=== PATIENT | female | born 1945 | race Caucasian/White ===

== ENCOUNTER 2020-05-13 09:26 | Inpatient (IN) | payer MEDICARE, BC ==
[2020-05-13] MEDS ORDERED: methylPREDNISolone Sodium Succinate 125 MG/2 ML SDV IVPUSH ONE (09:44)
[2020-05-13] MEDS ORDERED: Sodium Chloride 0.9% 2.5 ML Syringe FLUSH PRN ×2 (09:44→15:00)
[2020-05-13] MEDS ORDERED: Sodium Chloride 0.9% 10 ML Syringe FLUSH PRN (09:44)
--- NOTE | 2020-05-13 10:18 | EDM.PDOC ---
ED HPI GENERAL MEDICAL PROBLEM - General Chief Complaint: Respiratory Problem Stated Complaint: EMS ARRIVAL Time Seen by Provider: 05/13/20 09:43 Source of Information: Reports: Patient History Limitations: Reports: No Limitations - History of Present Illness INITIAL COMMENTS - FREE TEXT/NARRATIVE: 74-year-old female presents for shortness of breath and generalized weakness wor sening over the last 3 weeks. Patient has also noticed a nonproductive cough. She notes getting short of breath with short distance around her house. She denies any chest pain or tightness. She is uncertain of fevers. She has known Covid positive contacts. She has not been tested. She denies lower extremity swelling or pain. She does note generalized body aches - Related Data Allergies Allergy/AdvReac Type Severity Reaction Status Date / Time aspirin Allergy Rash Verified 06/16/15 10:33 Penicillins Allergy Nausea and Verified 05/13/20 09:28 Vomiting Home Meds: Home Meds Allopurinol [Zyloprim] 200 mg PO DAILY 05/13/20 [History] Dorzolamide HCl/Timolol Maleat [Dorzolamide-Timolol Eye Drops] 1 drop EYEBOTH DAILY 05/13/20 [History] Umeclidinium Brm/Vilanterol Tr [Anoro Ellipta 62.5-25 MCG] 1 inh IH DAILY 05/13/20 [History] busPIRone [Buspar] 15 mg PO TID 05/13/20 [History] hydrOXYzine HCL [Hydroxyzine HCl] 50 mg PO TID PRN 05/13/20 [History] Past Medical History HEENT History: Reports: Cataract, Impaired Vision Other HEENT History: wears glasses Cardiovascular History: Reports: None Respiratory History: Reports: COPD Gastrointestinal History: Reports: None Genitourinary History: Reports: None BRAND SPECIALIST History: Reports: None Musculoskeletal History: Reports: Gout Neurological History: Reports: None Psychiatric History: Reports: Anxiety, Depression Endocrine/Metabolic History: Reports: None Hematologic History: Reports: None Immunologic History: Reports: None Oncologic (Cancer) History: Reports: None Dermatologic History: Reports: None - Infectious Disease History Infectious Disease History: Reports: Chicken Pox, Measles, Rheumatic Fever - Past Surgical History Head Surgeries/Procedures: Reports: None HEENT Surgical History: Reports: Cataract Surgery Cardiovascular Surgical History: Reports: None Respiratory Surgical History: Reports: None GI Surgical History: Reports: None Female Surgical History: Reports: Tubal Ligation Endocrine Surgical History: Reports: None Neurological Surgical History: Reports: None Musculoskeletal Surgical History: Reports: None Oncologic Surgical History: Reports: None Dermatological Surgical History: Reports: None Social & Family History - Family History Family Medical History: No Pertinent Family History - Tobacco Use Tobacco Use Status *Q: Never Tobacco User - Caffeine Use Caffeine Use: Reports: None - Recreational Drug Use Recreational Drug Use: No ED ROS GENERAL - Review of Systems Review Of Systems: Comprehensive ROS is negative, except as noted in HPI. ED EXAM, GENERAL - Physical Exam Exam: See Below Exam Limited By: No Limitations General Appearance: Alert, WD/WN, No Apparent Distress Nose: Normal Inspection Throat/Mouth: Normal Voice, No Airway Compromise Head: Atraumatic, Normocephalic Neck: Normal Inspection Respiratory/Chest: No Respiratory Distress, Lungs Clear, Normal Breath Sounds, No Accessory Muscle Use, Other (Speaking full sentences without stopping, patient is on supplemental O2 to maintain pulse ox above 90%.) GI/Abdominal: Soft, Non-Tender Back Exam: Normal Inspection Extremities: Normal Inspection Neurological: Alert Psychiatric: Normal Affect, Normal Mood Skin Exam: Warm, Dry, Intact, Normal Color #1 Interpretation EKG Date: 05/13/20 Time: 09:38 Rhythm: NSR Rate (Beats/Min): 86 [place]: Normal P-Wave: Present QRS: Normal ST-T: Normal QT: Normal MD/PQ Interval: 155 Comparison: NA - No Prior EKG EKG Interpretation Comments: no ischemic changes Course - Vital Signs Last Recorded V/S: Last Vital Signs Temp 97.8 F 05/13/20 09:28 Pulse 70 05/13/20 12:03 Resp 17 05/13/20 12:03 BP 126/79 05/13/20 12:03 Pulse Ox 96 05/13/20 12:03 - Orders/Labs/Meds Orders: Active Orders 24 hr Category Date Time Status Cardiac Monitoring [RC] . DIRECTED Care 05/13/20 09:44 Active EKG Documentation Completion [RC] STAT Care 05/13/20 09:44 Active Pulse Oximetry [RC] ASDIRECTED Care 05/13/20 09:44 Active CULTURE BLOOD [BC] Stat Lab 05/13/20 12:09 Ordered CULTURE BLOOD [BC] Stat Lab 05/13/20 12:09 Ordered UA W/CHRIS RFLX IF INDICATED [URIN] Stat Lab 05/13/20 09:45 Ordered Cefepime [Maxipime in D5W 2 GM/50 ML] 2 gm Med 05/13/20 12:09 Active Premix Bag 1 bag IV ONETIME Sodium Chloride 0.9% [Saline Flush] Med 05/13/20 09:44 Active 10 ml FLUSH ASDIRECTED PRN Sodium Chloride 0.9% [Saline Flush] Med 05/13/20 09:44 Active 2.5 ml FLUSH ASDIRECTED PRN Blood Culture x2 Reflex Set [OM.PC] Stat Oth 05/13/20 12:09 Ordered Saline Lock Insert [OM.PC] Stat Oth 05/13/20 09:44 Ordered Medication Orders Cefepime HCl 2 gm/ Premix 50 mls @ 100 mls/hr IV ONETIME ONE Stop: 05/13/20 12:38 Sodium Chloride (Saline Flush) 10 ml FLUSH ASDIRECTED PRN PRN Reason: Keep Vein Open Last Admin: 05/13/20 09:50 Dose: 10 ml Documented by: [id number] Sodium Chloride (Saline Flush) 2.5 ml FLUSH ASDIRECTED PRN PRN Reason: Keep Vein Open Last Admin: 05/13/20 09:50 Dose: 2.5 ml Documented by: [id number] Labs: Laboratory Tests 05/13/20 05/13/20 05/13/20 Range/Units 09:52 09:52 09:52 WBC 6.69 (4.0-11.0) K/uL RBC 4.60 (4.30-5.90) M/uL Hgb 13.7 (12.0-16.0) g/dL Hct 42.0 (36.0-46.0) % MCV 91.3 (80.0-98.0) fL MCH 29.8 (27.0-32.0) pg MCHC 32.6 (31.0-37.0) g/dL RDW Std Deviation 46.7 (28.0-62.0) fl RDW Coeff of Oscar 14 (11.0-15.0) % Plt Count 243 (150-400) K/uL MPV 9.90 (7.40-12.00) fL Neut % (Auto) 74.2 (48.0-80.0) % Lymph % (Auto) 14.6 L (16.0-40.0) % [place] % (Auto) 8.8 (0.0-15.0) % Eos % (Auto) 2.1 (0.0-7.0) % Baso % (Auto) 0.3 (0.0-1.5) % Neut # (Auto) 5.0 (1.4-5.7) K/uL Lymph # (Auto) 1.0 (0.6-2.4) K/uL [place] # (Auto) 0.6 (0.0-0.8) K/uL Eos # (Auto) 0.1 (0.0-0.7) K/uL Baso # (Auto) 0.0 (0.0-0.1) K/uL Nucleated RBC % 0.0 /100WBC Nucleated RBCs # 0 K/uL INR 1.06 APTT 26.3 (18.6-31.3) SEC D-Dimer, Quantitative 20.52 H (0.0-0.50) mg/L FEU ABG pH (7.35-7.45) ABG pCO2 (35-45) mmHG ABG pO2 (75-100) mmHG ABG HCO3 (22-26) mEq/L ABG Total CO2 ABG Base Excess (-2.0-2.0) Lactate 2.0 (0.20-2.00) mmol/L Sodium (136-145) mmol/L Potassium (3.5-5.1) mmol/L Chloride (98-107) mmol/L Carbon Dioxide (21.0-32.0) mmol/L BUN (7.0-18.0) mg/dL Creatinine (0.6-1.0) mg/dL Est Cr Clr Drug Dosing mL/min Estimated GFR (MDRD) ml/min Glucose (74-106) mg/dL Calcium (8.5-10.1) mg/dL Magnesium (1.8-2.4) mg/dL Total Bilirubin (0.2-1.0) mg/dL AST (15-37) IU/L ALT (14-63) IU/L Alkaline Phosphatase (46-116) U/L Troponin I (0.000-0.056) ng/mL B-Natriuretic Peptide (<100) PG/ML Total Protein (6.4-8.2) g/dL Albumin (3.4-5.0) g/dL Globulin (2.6-4.0) g/dL Albumin/Globulin Ratio (0.9-1.6) Influenza Type A RNA (NEGATIVE) Influenza Type B RNA (NEGATIVE) SARS-CoV-2 RNA (DANELLE) (NEGATIVE) 05/13/20 05/13/20 05/13/20 Range/Units 09:52 09:52 10:00 WBC (4.0-11.0) K/uL RBC (4.30-5.90) M/uL Hgb (12.0-16.0) g/dL Hct (36.0-46.0) % MCV (80.0-98.0) fL MCH (27.0-32.0) pg MCHC (31.0-37.0) g/dL RDW Std Deviation (28.0-62.0) fl RDW Coeff of Oscar (11.0-15.0) % Plt Count (150-400) K/uL MPV (7.40-12.00) fL Neut % (Auto) (48.0-80.0) % Lymph % (Auto) (16.0-40.0) % [place] % (Auto) (0.0-15.0) % Eos % (Auto) (0.0-7.0) % Baso % (Auto) (0.0-1.5) % Neut # (Auto) (1.4-5.7) K/uL Lymph # (Auto) (0.6-2.4) K/uL [place] # (Auto) (0.0-0.8) K/uL Eos # (Auto) (0.0-0.7) K/uL Baso # (Auto) (0.0-0.1) K/uL Nucleated RBC % /100WBC Nucleated RBCs # K/uL INR APTT (18.6-31.3) SEC D-Dimer, Quantitative (0.0-0.50) mg/L FEU ABG pH 7.522 H (7.35-7.45) ABG pCO2 31 L (35-45) mmHG ABG pO2 65 L (75-100) mmHG ABG HCO3 25 (22-26) mEq/L ABG Total CO2 22.0 ABG Base Excess 3.0 H (-2.0-2.0) Lactate (0.20-2.00) mmol/L Sodium 144 (136-145) mmol/L Potassium 3.6 (3.5-5.1) mmol/L Chloride 107 (98-107) mmol/L Carbon Dioxide 25.7 (21.0-32.0) mmol/L BUN 15 (7.0-18.0) mg/dL Creatinine 1.2 H (0.6-1.0) mg/dL Est Cr Clr Drug Dosing 35.52 mL/min Estimated GFR (MDRD) 43.9 ml/min Glucose 117 H (74-106) mg/dL Calcium 9.4 (8.5-10.1) mg/dL Magnesium 2.2 (1.8-2.4) mg/dL Total Bilirubin 0.4 (0.2-1.0) mg/dL AST 33 (15-37) IU/L ALT 24 (14-63) IU/L Alkaline Phosphatase 93 (46-116) U/L Troponin I < 0.050 (0.000-0.056) ng/mL B-Natriuretic Peptide 44 (<100) PG/ML Total Protein 7.0 (6.4-8.2) g/dL Albumin 2.7 L (3.4-5.0) g/dL Globulin 4.3 H (2.6-4.0) g/dL Albumin/Globulin Ratio 0.6 L (0.9-1.6) Influenza Type A RNA (NEGATIVE) Influenza Type B RNA (NEGATIVE) SARS-CoV-2 RNA (DANELLE) (NEGATIVE) 05/13/20 Range/Units 10:15 WBC (4.0-11.0) K/uL RBC (4.30-5.90) M/uL Hgb (12.0-16.0) g/dL Hct (36.0-46.0) % MCV (80.0-98.0) fL MCH (27.0-32.0) pg MCHC (31.0-37.0) g/dL RDW Std Deviation (28.0-62.0) fl RDW Coeff of [place] (11.0-15.0) % Plt Count (150-400) K/uL MPV (7.40-12.00) fL Neut % (Auto) (48.0-80.0) % Lymph % (Auto) (16.0-40.0) % [place] % (Auto) (0.0-15.0) % Eos % (Auto) (0.0-7.0) % Baso % (Auto) (0.0-1.5) % Neut # (Auto) (1.4-5.7) K/uL Lymph # (Auto) (0.6-2.4) K/uL [place] # (Auto) (0.0-0.8) K/uL Eos # (Auto) (0.0-0.7) K/uL Baso # (Auto) (0.0-0.1) K/uL Nucleated RBC % /100WBC Nucleated RBCs # K/uL INR APTT (18.6-31.3) SEC D-Dimer, Quantitative (0.0-0.50) mg/L FEU ABG pH (7.35-7.45) ABG pCO2 (35-45) mmHG ABG pO2 (75-100) mmHG ABG HCO3 (22-26) mEq/L ABG Total CO2 ABG Base Excess (-2.0-2.0) Lactate (0.20-2.00) mmol/L Sodium (136-145) mmol/L Potassium (3.5-5.1) mmol/L Chloride (98-107) mmol/L Carbon Dioxide (21.0-32.0) mmol/L BUN (7.0-18.0) mg/dL Creatinine (0.6-1.0) mg/dL Est Cr Clr Drug Dosing mL/min Estimated GFR (MDRD) ml/min Glucose (74-106) mg/dL Calcium (8.5-10.1) mg/dL Magnesium (1.8-2.4) mg/dL Total Bilirubin (0.2-1.0) mg/dL AST (15-37) IU/L ALT (14-63) IU/L Alkaline Phosphatase (46-116) U/L Troponin I (0.000-0.056) ng/mL B-Natriuretic Peptide (<100) PG/ML Total Protein (6.4-8.2) g/dL Albumin (3.4-5.0) g/dL Globulin (2.6-4.0) g/dL Albumin/Globulin Ratio (0.9-1.6) Influenza Type A RNA NEGATIVE (NEGATIVE) Influenza Type B RNA NEGATIVE (NEGATIVE) SARS-CoV-2 RNA (DANELLE) POSITIVE H (NEGATIVE) Meds: Medications Generic Name Dose Route Start Last Admin Trade Name Freq PRN Reason Stop Dose Admin Cefepime HCl 2 gm/ Premix 50 mls @ 100 mls/hr 05/13/20 12:09 IV 05/13/20 12:38 ONETIME ONE Sodium Chloride 10 ml 05/13/20 09:44 05/13/20 09:50 Saline Flush FLUSH 10 ml ASDIRECTED PRN Administration Keep Vein Open Sodium Chloride 2.5 ml 05/13/20 09:44 05/13/20 09:50 Saline Flush FLUSH 2.5 ml ASDIRECTED PRN Administration Keep Vein Open Discontinued Medications Generic Name Dose Route Start Last Admin Trade Name Freq PRN Reason Stop Dose Admin Iopamidol 80 ml 05/13/20 11:44 05/13/20 11:44 Isovue Multipack-370 (76%) IVPUSH 05/13/20 11:45 80 ml ONETIME STA Administration Methylprednisolone Sodium Succinate 125 mg 05/13/20 09:44 05/13/20 09:50 Solu-Medrol IVPUSH 05/13/20 09:45 125 mg ONETIME ONE Administration - Re-Assessments/Exams Free Text/Narrative Re-Assessment/Exam: 05/13/20 11:04 D-dimer markedly elevated. Will get CTA to rule out pulmonary embolism and for better evaluation of the lungs. Chest x-ray shows bilateral patchy infiltrates consistent with COPD versus Covid. 05/13/20 12:19 Will admit for COVID and superimposed bacterial pneumonia Departure - Departure Time of Disposition: 12:19 Disposition: Admitted As Inpatient 66 Clinical Impression: COVID-19 Pneumonia Qualifiers: Pneumonia type: due to unspecified organism Laterality: unspecified laterality Lung location: unspecified part of lung Qualified Code(s): J18.9 - Pneumonia, unspecified organism - Discharge Information Referrals: PCP,None [Primary Care Provider] - Forms: ED Department Discharge Sepsis Event Note (ED) - Evaluation Sepsis Screening Result: No Definite Risk - Focused Exam Vital Signs: Vital Signs Temp Pulse Resp BP Pulse Ox 05/13/20 12:03 70 17 126/79 96 05/13/20 11:09 81 18 106/64 95 05/13/20 10:31 83 18 102/75 95 05/13/20 10:07 84 18 112/73 94 L 05/13/20 09:28 97.8 F 84 18 119/75 92 L - My Orders Last 24 Hours: My Active Orders 05/13/20 09:44 Cardiac Monitoring [RC] . DIRECTED EKG Documentation Completion [RC] STAT Pulse Oximetry [RC] ASDIRECTED Sodium Chloride 0.9% [Saline Flush] 10 ml FLUSH ASDIRECTED PRN Sodium Chloride 0.9% [Saline Flush] 2.5 ml FLUSH ASDIRECTED PRN Saline Lock Insert [OM.PC] Stat 05/13/20 09:45 UA W/CHRIS RFLX IF INDICATED [URIN] Stat 05/13/20 12:09 CULTURE BLOOD [BC] Stat CULTURE BLOOD [BC] Stat Cefepime [Maxipime in D5W 2 GM/50 ML] 2 gm Premix Bag 1 bag IV ONETIME Blood Culture x2 Reflex Set [OM.PC] Stat - Assessment/Plan Last 24 Hours: My Active Orders 05/13/20 09:44 Cardiac Monitoring [RC] . DIRECTED EKG Documentation Completion [RC] STAT Pulse Oximetry [RC] ASDIRECTED Sodium Chloride 0.9% [Saline Flush] 10 ml FLUSH ASDIRECTED PRN Sodium Chloride 0.9% [Saline Flush] 2.5 ml FLUSH ASDIRECTED PRN Saline Lock Insert [OM.PC] Stat 05/13/20 09:45 UA W/CHRIS RFLX IF INDICATED [URIN] Stat 05/13/20 12:09 CULTURE BLOOD [BC] Stat CULTURE BLOOD [BC] Stat Cefepime [Maxipime in D5W 2 GM/50 ML] 2 gm Premix Bag 1 bag IV ONETIME Blood Culture x2 Reflex Set [OM.PC] Stat
--- NOTE | 2020-05-13 10:28 | CR ---
INDICATION: Dyspnea. Clinically suspected COVID. COMPARISON: None TECHNIQUE: Single-view portable chest radiograph FINDINGS: TUBES AND LINES: None. HEART AND MEDIASTINUM: The heart size is normal. The mediastinal contour appears normal for patient age. LUNGS AND PLEURAL SPACES: Upper lobes appear hyperlucent raising the possibility of a background pattern of COPD. Patchy opacities of both lung bases, left greater than right, probably inflammatory.No pleural effusion or pneumothorax OSSEOUS STRUCTURES: Age-appropriate appearance. No acute focal finding. IMPRESSION: Probable background pattern of COPD. Patchy opacities of both lung bases, left greater than right, probably inflammatory. Dictated by Jason Livingston MD @ May 13 2020 10:25AM Signed by Dr. Jason Livingston @ May 13 2020 10:27AM
[2020-05-13 10:33] LABS: BLOOD UREA NITROGEN,BUN 15 mg/dL (7.0-18.0); CARBON DIOXIDE,CO2 25.7 mmol/L (21.0-32.0); CHLORIDE,CL 107 mmol/L (98-107); GLUCOSE RANDOM 117 mg/dL (74-106); POTASSIUM,K 3.6 mmol/L (3.5-5.1); SODIUM,NA 144 mmol/L (136-145)
[2020-05-13 11:10] LABS: CORONAVIRUS COVID-19 NAA POSITIVE (NEGATIVE); INFLUENZA A NAA NEGATIVE (NEGATIVE); INFLUENZA B NAA NEGATIVE (NEGATIVE)
[2020-05-13] MEDS ORDERED: Iopamidol 755 MG/ML 500 ML Multipack Bottle IVPUSH STA (11:44)
--- NOTE | 2020-05-13 12:01 | CT ---
INDICATION: Dyspnea. Elevated D-dimer. COVID positive. COMPARISON: A chest radiograph from the same day TECHNIQUE: : CT examination of the chest was performed with the uneventful intravenous administration of 80 cc of Isovue 3 7 while thin axial sections were obtained from above the apices of the lungs to the lung bases. Please note that all CT scans at this facility use dose modulation, iterative reconstruction, and/or weight-based dosing when appropriate to reduce radiation dose to as low as reasonably achievable. FINDINGS: : HEART and MEDIASTINUM: Heart is mildly enlarged. Atherosclerotic vascular valvular calcifications. Prominent mediastinal lymph nodes likely reactive to the process discussed below. The valvular calcifications are aortic valvular. PULMONARY ARTERIAL CIRCULATION: No evidence of pulmonary embolus LUNGS: The lungs are present with multiple abnormalities. There is a background of significant upper lobe predominant centrilobular emphysema. There is also a background cystic lung disease at the bases especially posteriorly and in the lingula and right middle lobe. This is likely due to interstitial fibrosis and therefore this is a mixed emphysema and fibrosis pattern. In areas, the fibrosis consists of honeycombing which is considered severe fibrosis There is abnormal fluid and soft tissue in a cavity at the right base measuring about 4 centimeters in greatest length. This is probably due to superinfection of the cavity. This is usually bacterial or fungal in nature. There is abnormal increased density identified posteriorly at the bases in the areas of fibrosis. This is probably due to a superimposed infectious process within the fibrosis. This can be seen in bacterial disease. COVID pneumonia specifically affecting areas of pre-existing fibrosis has not yet been described. PLEURAL SPACES: There is no pleural effusion, pneumothorax or pleural based mass. VISUALIZED UPPER ABDOMEN: The limited visualized upper abdominal structures appear normal. OSSEOUS STRUCTURES: Age-appropriate appearance. No acute fracture or destructive process. TUBES and LINES: None. IMPRESSION: 1. Mildly enlarged heart. Mediastinal lymphadenopathy likely reactive. 2. No evidence of pulmonary embolus. 3. There is significant chronic lung disease. The chronic lung disease is a mixed emphysema and fibrosis pattern with areas of honeycombing. 4. There is a cavity in the right lower lobe containing abnormal fluid and soft tissue. This is not a necrotizing pneumonia but rather superinfection of a pre-existing cavity. This is usually due to bacterial or noninvasive fungal disease. 5. Bilateral lower lobe airspace disease could represent a separate inflammatory process such as pneumonia including the possibility of COVID pneumonia Please note that all CT scans at this facility use dose modulation, iterative reconstruction, and/or weight-based dosing when appropriate to reduce radiation dose to as low as reasonably achievable. Dictated by Jason Livingston MD @ May 13 2020 11:47AM Signed by Dr. Jason Livingston @ May 13 2020 11:59AM
[2020-05-13] MEDS ORDERED: Cefepime 2 GM in Premix Bag 1 BAG IV ONE (12:09)
[2020-05-13] MEDS ORDERED: REMDESIVIR 200 MG in Sodium Chloride 0.9% 250 ML IV ONE (13:36)
--- NOTE | 2020-05-13 13:43 | PCM.HP.2 ---
H&P History of Present Illness - General Date of Service: 05/13/20 Admit Problem/Dx: Admission Diagnosis/Problem Admission Diagnosis/Problem Pneumonia Source of Information: Patient History Limitations: Reports: No Limitations - History of Present Illness Initial Comments - Free Text/Narative: This 74-year-old female with past medical history of COPD, recurrent pneumonia presented to the ER with not feeling well for at least 2 weeks. She reports that she is progressively worsened. It initially started when she was seen by an oral surgeon in [facility] for abscessed tooth and she was placed on amoxicillin. She reports after taking the amoxicillin she felt she became generally tired and fatigued and did not feel well. She reports intermittent nausea no vomiting and shortness of breath. She denies any sinus congestion neck pain sore throat no loss of smell or taste and no chest pain. She reports that she has become very short of breath with any movement within her home even a very short distance. She reports she has an intermittent cough that has been cold sputum in color and had one episode of hemoptysis yesterday. She denies any abdominal pain dysuria or constipation or diarrhea. She reports she has had known contacts that are positive with Covid. She denies any tobacco use she is a former user. No recreational drug use and no alcohol use. In the ER no leukocytosis noted platelets and hemoglobin stable D-dimer severely elevated at 20. Troponin negative Covid swab positive influenza negative. Chest x-ray revealed bilateral patchy infiltrates. Due to the elevated D-dimer CTA of the chest was obtained which reveals mildly enlarged heart with m ediastinal lymphadenopathy which is likely reactive there is no evidence of pulmonary embolus. There is significant chronic lung disease which is a mix of emphysema and fibrosis with areas of honeycombing. There is a cavity in the right lower lobe containing abnormal fluid of soft tissue this is not necrotizing pneumonia but rather a superinfection of a pre-existing cavity. Bilateral lower lobe airspace disease could represent a separate inflammatory process such as pneumonia including the possibility of Covid pneumonia. She was treated with cefepime in the ER blood cultures and urine sample obtained. Lactic acid normal at 2. She was noted to be 84% on room air upon arrival, she was placed on 4 L of oxygen due to hypoxia. She will be admitted inpatient for acute hypoxic respiratory failure, COVID-19 pneumonia, viral pneumonia, community-acquired pneumonia. - Related Data Allergies/Adverse Reactions: Allergies Allergy/AdvReac Type Severity Reaction Status Date / Time aspirin Allergy Rash Verified 06/16/15 10:33 Penicillins Allergy Nausea and Verified 05/13/20 09:28 Vomiting Home Medications: Home Meds Allopurinol [Zyloprim] 200 mg PO DAILY 05/13/20 [History] Dorzolamide HCl/Timolol Maleat [Dorzolamide-Timolol Eye Drops] 1 drop EYEBOTH DAILY 05/13/20 [History] Umeclidinium Brm/Vilanterol Tr [Anoro Ellipta 62.5-25 MCG] 1 inh IH DAILY 05/13/20 [History] busPIRone [Buspar] 15 mg PO TID 05/13/20 [History] hydrOXYzine HCL [Hydroxyzine HCl] 50 mg PO TID PRN 05/13/20 [History] Past Medical History HEENT History: Reports: Cataract, Impaired Vision Other HEENT History: wears glasses Cardiovascular History: Reports: None Respiratory History: Reports: COPD Gastrointestinal History: Reports: None Genitourinary History: Reports: None [employer] History: Reports: None Musculoskeletal History: Reports: Gout Neurological History: Reports: None Psychiatric History: Reports: Anxiety, Depression Endocrine/Metabolic History: Reports: None Hematologic History: Reports: None Immunologic History: Reports: None Oncologic (Cancer) History: Reports: None Dermatologic History: Reports: None - Infectious Disease History Infectious Disease History: Reports: Chicken Pox, Measles, Rheumatic Fever - Past Surgical History Head Surgeries/Procedures: Reports: None HEENT Surgical History: Reports: Cataract Surgery Cardiovascular Surgical History: Reports: None Respiratory Surgical History: Reports: None GI Surgical History: Reports: None Female Surgical History: Reports: Tubal Ligation Endocrine Surgical History: Reports: None Neurological Surgical History: Reports: None Musculoskeletal Surgical History: Reports: None Oncologic Surgical History: Reports: None Dermatological Surgical History: Reports: None Social & Family History - Family History Family Medical History: No Pertinent Family History - Tobacco Use Tobacco Use Status *Q: Never Tobacco User - Caffeine Use Caffeine Use: Reports: None - Recreational Drug Use Recreational Drug Use: No H&P Review of Systems - Review of Systems: Review Of Systems: See Below General: Reports: Chills, Malaise, Weakness, Fatigue HEENT: Reports: No Symptoms, Headaches. Denies: Sinus Congestion, Sore Throat, Visual Changes Pulmonary: Reports: Shortness of Breath, Pleuritic Chest Pain, Cough, Sputum, Hemoptysis Cardiovascular: Reports: Dyspnea on Exertion. Denies: Chest Pain Gastrointestinal: Reports: Nausea. Denies: Abdominal Pain, Black Stool, Bloody Stool, Constipation, Vomiting Genitourinary: Reports: No Symptoms. Denies: Dysuria, Frequency, Burning Musculoskeletal: Reports: No Symptoms Skin: Reports: No Symptoms Psychiatric: Reports: No Symptoms Neurological: Reports: No Symptoms Hematologic/Lymphatic: Reports: No Symptoms Immunologic: Reports: No Symptoms Exam - Exam Exam: See Below - Vital Signs Vital Signs: Last Vital Signs Temp 97.8 F 05/13/20 09:28 Pulse 79 05/13/20 13:01 Resp 18 05/13/20 13:01 BP 135/87 05/13/20 13:01 Pulse Ox 94 L 05/13/20 13:01 Weight: 77.111 kg - Exam General: Alert, Oriented, Cooperative, Other (Appears acutely ill.) HEENT: Conjunctiva Clear, Mucosa Moist & Groom, Posterior Pharynx Clear Neck: Supple, Trachea Midline Lungs: Decreased Breath Sounds (Basilar), Crackles (Fine crackles to the right). No: Normal Respiratory Effort (Dyspnea), Wheezing Cardiovascular: Regular Rate, Regular Rhythm, Normal S1, Normal S2 GI/Abdominal Exam: Normal Bowel Sounds, Soft, Non-Tender Back Exam: Normal Inspection, Full Range of Motion Extremities: Normal Inspection, Normal Range of Motion, Non-Tender, No Pedal Edema Neurological: Cranial Nerves Intact Neuro Extensive - Mental Status: Alert, Oriented x3 Neuro Extensive - Motor, Sensory, Reflexes: CN II-XII Intact Psychiatric: Alert, Normal Affect, Normal Mood - Patient Data Lab Results Last 24 hrs: Laboratory Results - last 24 hr 05/13/20 05/13/20 05/13/20 Range/Units 09:52 09:52 09:52 WBC 6.69 (4.0-11.0) K/uL RBC 4.60 (4.30-5.90) M/uL Hgb 13.7 (12.0-16.0) g/dL Hct 42.0 (36.0-46.0) % MCV 91.3 (80.0-98.0) fL MCH 29.8 (27.0-32.0) pg MCHC 32.6 (31.0-37.0) g/dL RDW Std Deviation 46.7 (28.0-62.0) fl RDW Coeff of Oscar 14 (11.0-15.0) % Plt Count 243 (150-400) K/uL MPV 9.90 (7.40-12.00) fL Neut % (Auto) 74.2 (48.0-80.0) % Lymph % (Auto) 14.6 L (16.0-40.0) % Antelope % (Auto) 8.8 (0.0-15.0) % Eos % (Auto) 2.1 (0.0-7.0) % Baso % (Auto) 0.3 (0.0-1.5) % Neut # (Auto) 5.0 (1.4-5.7) K/uL Lymph # (Auto) 1.0 (0.6-2.4) K/uL Antelope # (Auto) 0.6 (0.0-0.8) K/uL Eos # (Auto) 0.1 (0.0-0.7) K/uL Baso # (Auto) 0.0 (0.0-0.1) K/uL Nucleated RBC % 0.0 /100WBC Nucleated RBCs # 0 K/uL INR 1.06 APTT 26.3 (18.6-31.3) SEC D-Dimer, Quantitative 20.52 H (0.0-0.50) mg/L FEU ABG pH (7.35-7.45) ABG pCO2 (35-45) mmHG ABG pO2 (75-100) mmHG ABG HCO3 (22-26) mEq/L ABG Total CO2 ABG Base Excess (-2.0-2.0) Lactate 2.0 (0.20-2.00) mmol/L Sodium (136-145) mmol/L Potassium (3.5-5.1) mmol/L Chloride (98-107) mmol/L Carbon Dioxide (21.0-32.0) mmol/L BUN (7.0-18.0) mg/dL Creatinine (0.6-1.0) mg/dL Est Cr Clr Drug Dosing mL/min Estimated GFR (MDRD) ml/min Glucose (74-106) mg/dL Calcium (8.5-10.1) mg/dL Magnesium (1.8-2.4) mg/dL Total Bilirubin (0.2-1.0) mg/dL AST (15-37) IU/L ALT (14-63) IU/L Alkaline Phosphatase (46-116) U/L Troponin I (0.000-0.056) ng/mL B-Natriuretic Peptide (<100) PG/ML Total Protein (6.4-8.2) g/dL Albumin (3.4-5.0) g/dL Globulin (2.6-4.0) g/dL Albumin/Globulin Ratio (0.9-1.6) Influenza Type A RNA (NEGATIVE) Influenza Type B RNA (NEGATIVE) SARS-CoV-2 RNA (DANELLE) (NEGATIVE) 05/13/20 05/13/20 05/13/20 Range/Units 09:52 09:52 10:00 WBC (4.0-11.0) K/uL RBC (4.30-5.90) M/uL Hgb (12.0-16.0) g/dL Hct (36.0-46.0) % MCV (80.0-98.0) fL MCH (27.0-32.0) pg MCHC (31.0-37.0) g/dL RDW Std Deviation (28.0-62.0) fl RDW Coeff of Oscar (11.0-15.0) % Plt Count (150-400) K/uL MPV (7.40-12.00) fL Neut % (Auto) (48.0-80.0) % Lymph % (Auto) (16.0-40.0) % Antelope % (Auto) (0.0-15.0) % Eos % (Auto) (0.0-7.0) % Baso % (Auto) (0.0-1.5) % Neut # (Auto) (1.4-5.7) K/uL Lymph # (Auto) (0.6-2.4) K/uL Antelope # (Auto) (0.0-0.8) K/uL Eos # (Auto) (0.0-0.7) K/uL Baso # (Auto) (0.0-0.1) K/uL Nucleated RBC % /100WBC Nucleated RBCs # K/uL INR APTT (18.6-31.3) SEC D-Dimer, Quantitative (0.0-0.50) mg/L FEU ABG pH 7.522 H (7.35-7.45) ABG pCO2 31 L (35-45) mmHG ABG pO2 65 L (75-100) mmHG ABG HCO3 25 (22-26) mEq/L ABG Total CO2 22.0 ABG Base Excess 3.0 H (-2.0-2.0) Lactate (0.20-2.00) mmol/L Sodium 144 (136-145) mmol/L Potassium 3.6 (3.5-5.1) mmol/L Chloride 107 (98-107) mmol/L Carbon Dioxide 25.7 (21.0-32.0) mmol/L BUN 15 (7.0-18.0) mg/dL Creatinine 1.2 H (0.6-1.0) mg/dL Est Cr Clr Drug Dosing 35.52 mL/min Estimated GFR (MDRD) 43.9 ml/min Glucose 117 H (74-106) mg/dL Calcium 9.4 (8.5-10.1) mg/dL Magnesium 2.2 (1.8-2.4) mg/dL Total Bilirubin 0.4 (0.2-1.0) mg/dL AST 33 (15-37) IU/L ALT 24 (14-63) IU/L Alkaline Phosphatase 93 (46-116) U/L Troponin I < 0.050 (0.000-0.056) ng/mL B-Natriuretic Peptide 44 (<100) PG/ML Total Protein 7.0 (6.4-8.2) g/dL Albumin 2.7 L (3.4-5.0) g/dL Globulin 4.3 H (2.6-4.0) g/dL Albumin/Globulin Ratio 0.6 L (0.9-1.6) Influenza Type A RNA (NEGATIVE) Influenza Type B RNA (NEGATIVE) SARS-CoV-2 RNA (DANELLE) (NEGATIVE) 05/13/20 Range/Units 10:15 WBC (4.0-11.0) K/uL RBC (4.30-5.90) M/uL Hgb (12.0-16.0) g/dL Hct (36.0-46.0) % MCV (80.0-98.0) fL MCH (27.0-32.0) pg MCHC (31.0-37.0) g/dL RDW Std Deviation (28.0-62.0) fl RDW Coeff of Oscar (11.0-15.0) % Plt Count (150-400) K/uL MPV (7.40-12.00) fL Neut % (Auto) (48.0-80.0) % Lymph % (Auto) (16.0-40.0) % Antelope % (Auto) (0.0-15.0) % Eos % (Auto) (0.0-7.0) % Baso % (Auto) (0.0-1.5) % Neut # (Auto) (1.4-5.7) K/uL Lymph # (Auto) (0.6-2.4) K/uL Antelope # (Auto) (0.0-0.8) K/uL Eos # (Auto) (0.0-0.7) K/uL Baso # (Auto) (0.0-0.1) K/uL Nucleated RBC % /100WBC Nucleated RBCs # K/uL INR APTT (18.6-31.3) SEC D-Dimer, Quantitative (0.0-0.50) mg/L FEU ABG pH (7.35-7.45) ABG pCO2 (35-45) mmHG ABG pO2 (75-100) mmHG ABG HCO3 (22-26) mEq/L ABG Total CO2 ABG Base Excess (-2.0-2.0) Lactate (0.20-2.00) mmol/L Sodium (136-145) mmol/L Potassium (3.5-5.1) mmol/L Chloride (98-107) mmol/L Carbon Dioxide (21.0-32.0) mmol/L BUN (7.0-18.0) mg/dL Creatinine (0.6-1.0) mg/dL Est Cr Clr Drug Dosing mL/min Estimated GFR (MDRD) ml/min Glucose (74-106) mg/dL Calcium (8.5-10.1) mg/dL Magnesium (1.8-2.4) mg/dL Total Bilirubin (0.2-1.0) mg/dL AST (15-37) IU/L ALT (14-63) IU/L Alkaline Phosphatase (46-116) U/L Troponin I (0.000-0.056) ng/mL B-Natriuretic Peptide (<100) PG/ML Total Protein (6.4-8.2) g/dL Albumin (3.4-5.0) g/dL Globulin (2.6-4.0) g/dL Albumin/Globulin Ratio (0.9-1.6) Influenza Type A RNA NEGATIVE (NEGATIVE) Influenza Type B RNA NEGATIVE (NEGATIVE) SARS-CoV-2 RNA (DANELLE) POSITIVE H (NEGATIVE) Result Diagrams: 05/13/20 09:52 05/13/20 09:52 Sepsis Event Note - Evaluation Sepsis Screening Result: No Definite Risk - Focused Exam Vital Signs: Vital Signs Temp Pulse Resp BP Pulse Ox 05/13/20 13:01 79 18 135/87 94 L 05/13/20 12:31 89 17 139/87 95 05/13/20 12:03 70 17 126/79 96 05/13/20 11:09 81 18 106/64 95 05/13/20 10:31 83 18 102/75 95 05/13/20 10:07 84 18 112/73 94 L 05/13/20 09:28 97.8 F 84 18 119/75 92 L - Problem List (1) Viral pneumonia SNOMED Code(s): 06192845 ICD Code: J12.9 - VIRAL PNEUMONIA, UNSPECIFIED Status: Acute Current Visit: Yes (2) Community acquired pneumonia SNOMED Code(s): 528826702 ICD Code: J18.9 - PNEUMONIA, UNSPECIFIED ORGANISM Status: Acute Current Visit: Yes (3) Emphysema lung SNOMED Code(s): 56313995 ICD Code: J43.9 - EMPHYSEMA, UNSPECIFIED Status: Acute Current Visit: Yes (4) COVID-19 SNOMED Code(s): 469158351 ICD Code: U07.1 - COVID-19 Status: Acute Current Visit: Yes (5) Anxiety SNOMED Code(s): 65232491 ICD Code: F41.9 - ANXIETY DISORDER, UNSPECIFIED Status: Chronic Current Visit: No Onset Date: 01/18/14 Problem List Initiated/Reviewed/Updated: Yes Orders Last 24hrs: Active Orders 24 hr Category Date Time Status Patient Status [ADT] Routine ADT 05/13/20 12:20 Active Cardiac Monitoring [RC] . DIRECTED Care 05/13/20 09:44 Active EKG Documentation Completion [RC] STAT Care 05/13/20 09:44 Active Pulse Oximetry [RC] ASDIRECTED Care 05/13/20 09:44 Active Telemetry Monitoring [Cardiac Monitoring] [RC] . Care 05/13/20 13:37 Ordered DIRECTED CULTURE BLOOD [BC] Stat Lab 05/13/20 12:33 Received CULTURE BLOOD [BC] Stat Lab 05/13/20 12:38 Received UA W/CHRIS RFLX IF INDICATED [URIN] Stat Lab 05/13/20 09:45 Ordered Azithromycin [Zithromax] 500 mg Med 05/13/20 13:45 Ordered Sodium Chloride 0.9% [Normal Saline (AdvBag)] 250 ml IV ONETIME Sodium Chloride 0.9% [Saline Flush] Med 05/13/20 09:44 Active 10 ml FLUSH ASDIRECTED PRN Sodium Chloride 0.9% [Saline Flush] Med 05/13/20 09:44 Active 2.5 ml FLUSH ASDIRECTED PRN Blood Culture x2 Reflex Set [OM.PC] Stat Oth 05/13/20 12:09 Ordered Saline Lock Insert [OM.PC] Stat Oth 05/13/20 09:44 Ordered Resuscitation Status Routine Resus Stat 05/13/20 13:37 Ordered Medication Orders Azithromycin 500 mg/ Sodium (Chloride) 250 mls @ 250 mls/hr IV ONETIME ANYI Sodium Chloride (Saline Flush) 10 ml FLUSH ASDIRECTED PRN PRN Reason: Keep Vein Open Last Admin: 05/13/20 09:50 Dose: 10 ml Documented by: [id number] Sodium Chloride (Saline Flush) 2.5 ml FLUSH ASDIRECTED PRN PRN Reason: Keep Vein Open Last Admin: 05/13/20 09:50 Dose: 2.5 ml Documented by: [id number] Assessment/Plan Comment:: This 74-year-old female admitted with acute hypoxic respiratory failure, COVID- 19, viral pneumonia, and community-acquired pneumonia 1. Acute hypoxic respiratory failure/COVID-19/viral pneumonia/CAP -Oxygen to keep sats greater than 92% -Blood cultures pending we will obtain sputum culture -Continue cefepime we will add azithromycin for atypical coverage -She is agreeable to remdesivir will give 200 mg now followed by 100 mg IV daily x4 days -Dexamethasone 6 mg p.o. daily -Encourage I-S and Acapella use -Combivent as needed -Self proning up to 12 to 14 hours a day as possible. Did credit counselor patient on this and she verbalized understanding. -Lovenox 40 mg daily -Monitor LFTs daily -We will obtain echo as CT reveals cardiomegaly 2. Pulmonary fibrosis/COPD -Continue Anoro -Combivent as needed 3. Anxiety -Continue home medications VTE prophylaxis: Lovenox GI prophylaxis: Protonix CODE STATUS: Full code Dispo 2 to 3 days pending improvement
[2020-05-13] MEDS ORDERED: Azithromycin 500 MG in Sodium Chloride 0.9% 250 ML IV SCH (13:45)
[2020-05-13] MEDS ORDERED: REMDESIVIR 200 MG in Sodium Chloride 0.9% 250 ML IV SCH (14:45)
[2020-05-13] MEDS ORDERED: Ondansetron 4 MG/2 ML SDV IVPUSH PRN (15:00)
[2020-05-13] MEDS ORDERED: Docusate Sodium 100 MG Cap PO PRN (15:00)
[2020-05-13] MEDS: busPIRone 5 MG Tab PO SCH ×2 (16:21→23:40)
[2020-05-13] MEDS: Enoxaparin 40 MG/0.4 ML Syringe SUBCUT SCH (16:22)
[2020-05-13] MEDS: Acetaminophen 325 MG Tab PO PRN ×2 (17:03→21:34)
[2020-05-13] MEDS: hydrOXYzine Pamoate 25 MG Cap PO PRN (23:41)
[2020-05-13] MEDS: Cefepime 2 GM in Premix Bag 1 BAG IV SCH (23:43)
[2020-05-13] MEDS: Latanoprost 0.005% Ophth Soln 2.5 ML Bottle EYEBOTH SCH (23:54)
[2020-05-14] MEDS: busPIRone 5 MG Tab PO SCH ×3 (06:40→21:55)
[2020-05-14] MEDS: Pantoprazole 40 MG Tab.CR PO SCH (06:40)
--- NOTE | 2020-05-14 08:04 | PCM.PN ---
- General Info Date of Service: 05/14/20 Admission Dx/Problem (Free Text): Admission Diagnosis/Problem Admission Diagnosis/Problem Pneumonia Subjective Update: Feeling improved from yesterday. Continues to have shortness of breath but has improved energy. Reports she did not sleep well as she is fidgety all night. Denies frequent cough intermittent production of phlegm. Denies any chest pain. Does have some dull pressure to the right lower rib cage likely secondary to pneumonia and pleuritic pain. She reports this has improved. Denies any fevers or chills but continues to have generalized malaise. She is tolerating diet well eating and drinking. Functional Status: Reports: Pain Controlled, Tolerating Diet, Ambulating, Urinating - Review of Systems General: Reports: Weakness, Fatigue, Malaise HEENT: Denies: Headaches, Sinus Congestion, Visual Changes Pulmonary: Reports: Shortness of Breath, Pleuritic Chest Pain (On the right side), Cough (Intermittently). Denies: Wheezing Cardiovascular: Reports: Dyspnea on Exertion. Denies: Chest Pain Gastrointestinal: Reports: No Symptoms. Denies: Abdominal Pain, Nausea, Vomiting Genitourinary: Reports: No Symptoms. Denies: Dysuria, Frequency, Burning Musculoskeletal: Reports: No Symptoms Skin: Reports: No Symptoms Neurological: Reports: No Symptoms Psychiatric: Reports: No Symptoms - Patient Data Vitals - Most Recent: Last Vital Signs Temp 97 F 05/14/20 04:43 Pulse 77 05/14/20 04:43 Resp 18 05/14/20 04:43 BP 138/75 05/14/20 04:43 Pulse Ox 94 L 05/14/20 04:43 Weight - Most Recent: 75.795 kg I&O - Last 24 Hours: Intake & Output 05/13/20 05/14/20 05/14/20 22:59 06:59 14:59 Intake Total 1140 Output Total 800 Balance 340 Lab Results Last 24 Hours: Laboratory Results - last 24 hr 05/13/20 05/13/20 05/13/20 Range/Units 09:52 09:52 09:52 WBC 6.69 (4.0-11.0) K/uL RBC 4.60 (4.30-5.90) M/uL Hgb 13.7 (12.0-16.0) g/dL Hct 42.0 (36.0-46.0) % MCV 91.3 (80.0-98.0) fL MCH 29.8 (27.0-32.0) pg MCHC 32.6 (31.0-37.0) g/dL RDW Std Deviation 46.7 (28.0-62.0) fl RDW Coeff of Oscar 14 (11.0-15.0) % Plt Count 243 (150-400) K/uL MPV 9.90 (7.40-12.00) fL Neut % (Auto) 74.2 (48.0-80.0) % Lymph % (Auto) 14.6 L (16.0-40.0) % [place] % (Auto) 8.8 (0.0-15.0) % Eos % (Auto) 2.1 (0.0-7.0) % Baso % (Auto) 0.3 (0.0-1.5) % Neut # (Auto) 5.0 (1.4-5.7) K/uL Lymph # (Auto) 1.0 (0.6-2.4) K/uL [place] # (Auto) 0.6 (0.0-0.8) K/uL Eos # (Auto) 0.1 (0.0-0.7) K/uL Baso # (Auto) 0.0 (0.0-0.1) K/uL Nucleated RBC % 0.0 /100WBC Nucleated RBCs # 0 K/uL INR 1.06 APTT 26.3 (18.6-31.3) SEC D-Dimer, Quantitative 20.52 H (0.0-0.50) mg/L FEU ABG pH (7.35-7.45) ABG pCO2 (35-45) mmHG ABG pO2 (75-100) mmHG ABG HCO3 (22-26) mEq/L ABG Total CO2 ABG Base Excess (-2.0-2.0) Lactate 2.0 (0.20-2.00) mmol/L Sodium (136-145) mmol/L Potassium (3.5-5.1) mmol/L Chloride (98-107) mmol/L Carbon Dioxide (21.0-32.0) mmol/L BUN (7.0-18.0) mg/dL Creatinine (0.6-1.0) mg/dL Est Cr Clr Drug Dosing mL/min Estimated GFR (MDRD) ml/min Glucose (74-106) mg/dL Calcium (8.5-10.1) mg/dL Magnesium (1.8-2.4) mg/dL Total Bilirubin (0.2-1.0) mg/dL AST (15-37) IU/L ALT (14-63) IU/L Alkaline Phosphatase (46-116) U/L Troponin I (0.000-0.056) ng/mL B-Natriuretic Peptide (<100) PG/ML Total Protein (6.4-8.2) g/dL Albumin (3.4-5.0) g/dL Globulin (2.6-4.0) g/dL Albumin/Globulin Ratio (0.9-1.6) Urine Color Urine Appearance Urine pH (5.0-8.0) Ur Specific [place] (1.001-1.035) Urine Protein (NEGATIVE) mg/dL Urine Glucose (UA) (NEGATIVE) mg/dL Urine Ketones (NEGATIVE) mg/dL Urine Occult Blood (NEGATIVE) Urine Nitrite (NEGATIVE) Urine Bilirubin (NEGATIVE) Urine Urobilinogen (<2.0) EU/dL Ur Leukocyte Esterase (NEGATIVE) Influenza Type A RNA (NEGATIVE) Influenza Type B RNA (NEGATIVE) SARS-CoV-2 RNA (DANELLE) (NEGATIVE) 05/13/20 05/13/20 05/13/20 Range/Units 09:52 09:52 10:00 WBC (4.0-11.0) K/uL RBC (4.30-5.90) M/uL Hgb (12.0-16.0) g/dL Hct (36.0-46.0) % MCV (80.0-98.0) fL MCH (27.0-32.0) pg MCHC (31.0-37.0) g/dL RDW Std Deviation (28.0-62.0) fl RDW Coeff of Oscar (11.0-15.0) % Plt Count (150-400) K/uL MPV (7.40-12.00) fL Neut % (Auto) (48.0-80.0) % Lymph % (Auto) (16.0-40.0) % [place] % (Auto) (0.0-15.0) % Eos % (Auto) (0.0-7.0) % Baso % (Auto) (0.0-1.5) % Neut # (Auto) (1.4-5.7) K/uL Lymph # (Auto) (0.6-2.4) K/uL [place] # (Auto) (0.0-0.8) K/uL Eos # (Auto) (0.0-0.7) K/uL Baso # (Auto) (0.0-0.1) K/uL Nucleated RBC % /100WBC Nucleated RBCs # K/uL INR APTT (18.6-31.3) SEC D-Dimer, Quantitative (0.0-0.50) mg/L FEU ABG pH 7.522 H (7.35-7.45) ABG pCO2 31 L (35-45) mmHG ABG pO2 65 L (75-100) mmHG ABG HCO3 25 (22-26) mEq/L ABG Total CO2 22.0 ABG Base Excess 3.0 H (-2.0-2.0) Lactate (0.20-2.00) mmol/L Sodium 144 (136-145) mmol/L Potassium 3.6 (3.5-5.1) mmol/L Chloride 107 (98-107) mmol/L Carbon Dioxide 25.7 (21.0-32.0) mmol/L BUN 15 (7.0-18.0) mg/dL Creatinine 1.2 H (0.6-1.0) mg/dL Est Cr Clr Drug Dosing 35.52 mL/min Estimated GFR (MDRD) 43.9 ml/min Glucose 117 H (74-106) mg/dL Calcium 9.4 (8.5-10.1) mg/dL Magnesium 2.2 (1.8-2.4) mg/dL Total Bilirubin 0.4 (0.2-1.0) mg/dL AST 33 (15-37) IU/L ALT 24 (14-63) IU/L Alkaline Phosphatase 93 (46-116) U/L Troponin I < 0.050 (0.000-0.056) ng/mL B-Natriuretic Peptide 44 (<100) PG/ML Total Protein 7.0 (6.4-8.2) g/dL Albumin 2.7 L (3.4-5.0) g/dL Globulin 4.3 H (2.6-4.0) g/dL Albumin/Globulin Ratio 0.6 L (0.9-1.6) Urine Color Urine Appearance Urine pH (5.0-8.0) Ur Specific [place] (1.001-1.035) Urine Protein (NEGATIVE) mg/dL Urine Glucose (UA) (NEGATIVE) mg/dL Urine Ketones (NEGATIVE) mg/dL Urine Occult Blood (NEGATIVE) Urine Nitrite (NEGATIVE) Urine Bilirubin (NEGATIVE) Urine Urobilinogen (<2.0) EU/dL Ur Leukocyte Esterase (NEGATIVE) Influenza Type A RNA (NEGATIVE) Influenza Type B RNA (NEGATIVE) SARS-CoV-2 RNA (DANELLE) (NEGATIVE) 05/13/20 05/13/20 Range/Units 10:15 18:30 WBC (4.0-11.0) K/uL RBC (4.30-5.90) M/uL Hgb (12.0-16.0) g/dL Hct (36.0-46.0) % MCV (80.0-98.0) fL MCH (27.0-32.0) pg MCHC (31.0-37.0) g/dL RDW Std Deviation (28.0-62.0) fl RDW Coeff of Oscar (11.0-15.0) % Plt Count (150-400) K/uL MPV (7.40-12.00) fL Neut % (Auto) (48.0-80.0) % Lymph % (Auto) (16.0-40.0) % [place] % (Auto) (0.0-15.0) % Eos % (Auto) (0.0-7.0) % Baso % (Auto) (0.0-1.5) % Neut # (Auto) (1.4-5.7) K/uL Lymph # (Auto) (0.6-2.4) K/uL [place] # (Auto) (0.0-0.8) K/uL Eos # (Auto) (0.0-0.7) K/uL Baso # (Auto) (0.0-0.1) K/uL Nucleated RBC % /100WBC Nucleated RBCs # K/uL INR APTT (18.6-31.3) SEC D-Dimer, Quantitative (0.0-0.50) mg/L FEU ABG pH (7.35-7.45) ABG pCO2 (35-45) mmHG ABG pO2 (75-100) mmHG ABG HCO3 (22-26) mEq/L ABG Total CO2 ABG Base Excess (-2.0-2.0) Lactate (0.20-2.00) mmol/L Sodium (136-145) mmol/L Potassium (3.5-5.1) mmol/L Chloride (98-107) mmol/L Carbon Dioxide (21.0-32.0) mmol/L BUN (7.0-18.0) mg/dL Creatinine (0.6-1.0) mg/dL Est Cr Clr Drug Dosing mL/min Estimated GFR (MDRD) ml/min Glucose (74-106) mg/dL Calcium (8.5-10.1) mg/dL Magnesium (1.8-2.4) mg/dL Total Bilirubin (0.2-1.0) mg/dL AST (15-37) IU/L ALT (14-63) IU/L Alkaline Phosphatase (46-116) U/L Troponin I (0.000-0.056) ng/mL B-Natriuretic Peptide (<100) PG/ML Total Protein (6.4-8.2) g/dL Albumin (3.4-5.0) g/dL Globulin (2.6-4.0) g/dL Albumin/Globulin Ratio (0.9-1.6) Urine Color YELLOW Urine Appearance CLEAR Urine pH 5.0 (5.0-8.0) Ur Specific [place] 1.015 (1.001-1.035) Urine Protein NEGATIVE (NEGATIVE) mg/dL Urine Glucose (UA) NEGATIVE (NEGATIVE) mg/dL Urine Ketones NEGATIVE (NEGATIVE) mg/dL Urine Occult Blood NEGATIVE (NEGATIVE) Urine Nitrite NEGATIVE (NEGATIVE) Urine Bilirubin NEGATIVE (NEGATIVE) Urine Urobilinogen 0.2 (<2.0) EU/dL Ur Leukocyte Esterase NEGATIVE (NEGATIVE) Influenza Type A RNA NEGATIVE (NEGATIVE) Influenza Type B RNA NEGATIVE (NEGATIVE) SARS-CoV-2 RNA (DANELLE) POSITIVE H (NEGATIVE) Med Orders - Current: Current Medications Acetaminophen (Tylenol) 650 mg PO Q4H PRN PRN Reason: Pain (Mild 1-3)/fever Last Admin: 05/13/20 21:34 Dose: 650 mg Documented by: Allopurinol (Zyloprim) 200 mg PO DAILY [facility] Buspirone HCl (Buspar) 15 mg PO TID [facility] Last Admin: 05/14/20 06:40 Dose: 15 mg Documented by: Docusate Sodium (Colace) 100 mg PO BID PRN PRN Reason: Constipation Enoxaparin Sodium (Lovenox) 40 mg SUBCUT Q24H [facility] Last Admin: 05/13/20 16:22 Dose: 40 mg Documented by: Hydroxyzine Pamoate (Vistaril) 50 mg PO TID PRN PRN Reason: Anxiety Last Admin: 05/13/20 23:41 Dose: 50 mg Documented by: Azithromycin 500 mg/ Sodium (Chloride) 250 mls @ 250 mls/hr IV ONETIME [facility] Last Admin: 05/13/20 14:38 Dose: 250 mls/hr Documented by: Remdesivir 100 mg/ Sodium (Chloride) 100 mls @ 100 mls/hr IV Q24H [facility] Stop: 05/17/20 16:14 Cefepime HCl 2 gm/ Premix 50 mls @ 100 mls/hr IV Q12H [facility] Last Admin: 05/13/20 23:43 Dose: 100 mls/hr Documented by: Azithromycin 500 mg/ Sodium (Chloride) 250 mls @ 250 mls/hr IV Q24H [facility] Latanoprost (Xalatan 0.005% Ophth Soln) 0 ml EYEBOTH BEDTIME [facility] Last Admin: 05/13/20 23:54 Dose: 1 drop Documented by: Ondansetron HCl (Zofran) 4 mg IVPUSH Q4H PRN PRN Reason: Nausea Pantoprazole Sodium (Protonix) 40 mg PO ACBREAKFAST [facility] Last Admin: 05/14/20 06:40 Dose: 40 mg Documented by: Dorzolamide/Timolol 2%-0.5% Ophth Soln 10 Ml Bottle 0 each EYEBOTH DAILY [facility] Umeclidinium Brm/Vilanterol Tr [Anoro Ellipta 62.5-25 Mcg 1 each INH DAILY [facility] Sodium Chloride (Saline Flush) 2.5 ml FLUSH ASDIRECTED PRN PRN Reason: Keep Vein Open Discontinued Medications Cefepime HCl 2 gm/ Premix 50 mls @ 100 mls/hr IV ONETIME ONE Stop: 05/13/20 12:38 Last Admin: 05/13/20 13:04 Dose: 100 mls/hr Documented by: Remdesivir 200 mg/ Sodium (Chloride) 250 mls @ 250 mls/hr IV ONETIME ONE Stop: 05/13/20 13:37 Last Admin: 05/13/20 16:43 Dose: 250 mls/hr Documented by: Remdesivir 200 mg/ Sodium (Chloride) 250 mls @ 250 mls/hr IV ONETIME [facility]I Stop: 05/13/20 16:00 Iopamidol (Isovue Multipack-370 (76%)) 80 ml IVPUSH ONETIME STA Stop: 05/13/20 11:45 Last Admin: 05/13/20 11:44 Dose: 80 ml Documented by: Methylprednisolone Sodium Succinate (Solu-Medrol) 125 mg IVPUSH ONETIME ONE Stop: 05/13/20 09:45 Last Admin: 05/13/20 09:50 Dose: 125 mg Documented by: Sodium Chloride (Saline Flush) 10 ml FLUSH ASDIRECTED PRN PRN Reason: Keep Vein Open Last Admin: 05/13/20 09:50 Dose: 10 ml Documented by: Sodium Chloride (Saline Flush) 2.5 ml FLUSH ASDIRECTED PRN PRN Reason: Keep Vein Open Last Admin: 05/13/20 09:50 Dose: 2.5 ml Documented by: - Exam Quality Assessment: Supplemental Oxygen (2 L), DVT Prophylaxis (Lovenox) General: Alert, Oriented, Cooperative, No Acute Distress Lungs: Normal Respiratory Effort (Dyspnea noted with exertion and speech), Decreased Breath Sounds (Bibasilar), Crackles (Mild crackles to right lower lobe). No: Wheezing Cardiovascular: Regular Rate, Regular Rhythm, No Murmurs GI/Abdominal Exam: Normal Bowel Sounds, Soft, Non-Tender Back Exam: Normal Inspection, Full Range of Motion Extremities: Normal Inspection, Normal Range of Motion, Non-Tender, No Pedal Edema Wound/Incisions: Healing Well Neurological: No New Focal Deficit Psy/Mental Status: Alert, Normal Affect, Normal Mood Sepsis Event Note - Evaluation Sepsis Screening Result: No Definite Risk - Focused Exam Vital Signs: Vital Signs Temp Pulse Resp BP Pulse Ox 05/14/20 04:43 97 F 77 18 138/75 94 L 05/13/20 23:38 97 F 65 18 136/71 94 L - Problem List & Annotations (1) Viral pneumonia SNOMED Code(s): 25858816 Code(s): J12.9 - VIRAL PNEUMONIA, UNSPECIFIED Status: Acute Current Visit: Yes (2) Community acquired pneumonia SNOMED Code(s): 825095042 Code(s): J18.9 - PNEUMONIA, UNSPECIFIED ORGANISM Status: Acute Current Visit: Yes (3) Emphysema lung SNOMED Code(s): 67585506 Code(s): J43.9 - EMPHYSEMA, UNSPECIFIED Status: Acute Current Visit: Yes (4) COVID-19 SNOMED Code(s): 180655471 Code(s): U07.1 - COVID-19 Status: Acute Current Visit: Yes (5) Anxiety SNOMED Code(s): 19250395 Code(s): F41.9 - ANXIETY DISORDER, UNSPECIFIED Status: Chronic Current Visit: No Onset Date: 01/18/14 - Problem List Review Problem List Initiated/Reviewed/Updated: Yes - My Orders Last 24 Hours: My Active Orders 05/13/20 Lunch Regular Diet [DIET] 05/13/20 13:37 Telemetry Monitoring [Cardiac Monitoring] [RC] Q8H Resuscitation Status Routine 05/13/20 13:45 Azithromycin [Zithromax] 500 mg Sodium Chloride 0.9% [Normal Saline (AdvBag)] 250 ml IV ONETIME 05/13/20 15:00 Intake and Output [RC] Q12H Oxygen Therapy [RC] PRN Up With Assistance [RC] ASDIRECTED VTE/DVT Education [RC] PER UNIT ROUTINE Vital Signs [RC] Q4H Acetaminophen [TylenoL] 650 mg PO Q4H PRN Docusate Sodium [Colace] 100 mg PO BID PRN Enoxaparin [Lovenox] 40 mg SUBCUT Q24H Ondansetron [Zofran] 4 mg IVPUSH Q4H PRN Sodium Chloride 0.9% [Saline Flush] 2.5 ml FLUSH ASDIRECTED PRN Saline Lock Insert [OM.PC] Routine 05/13/20 15:07 RT Incentive Spirometry [RC] Q1HWA RT Acapella [RESPCARE] Routine 05/13/20 15:11 Communication Order [RC] ROUTINE 05/13/20 15:14 hydrOXYzine pamoate [Vistaril] 50 mg PO TID PRN 05/13/20 16:00 busPIRone [Buspar] 15 mg PO TID 05/13/20 23:30 Cefepime [Maxipime in D5W 2 GM/50 ML] 2 gm Premix Bag 1 bag IV Q12H 05/14/20 04:50 CULTURE SPUTUM + SMEAR [RM] Stat 05/14/20 07:15 CBC WITH AUTO DIFF [HEME] AM COMPREHENSIVE METABOLIC PN,CMP [CHEM] AM MAGNESIUM [CHEM] AM 05/14/20 07:30 Pantoprazole [ProTONIX] 40 mg PO ACBREAKFAST 05/14/20 09:00 Patient's Own Medication [Ptom] 0 each EYEBOTH DAILY Patient's Own Medication [Ptom] 1 each INH DAILY allopurinoL [Zyloprim] 200 mg PO DAILY 05/14/20 12:30 Azithromycin [Zithromax] 500 mg Sodium Chloride 0.9% [Normal Saline (AdvBag)] 250 ml IV Q24H 05/14/20 15:08 Echo Comp wo Cont [US] Routine 05/14/20 15:15 Remdesivir 100 mg Sodium Chloride 0.9% [Normal Saline] 100 ml IV Q24H 05/15/20 05:11 CBC WITH AUTO DIFF [HEME] AM COMPREHENSIVE METABOLIC PN,CMP [CHEM] AM MAGNESIUM [CHEM] AM 05/16/20 05:11 CBC WITH AUTO DIFF [HEME] AM COMPREHENSIVE METABOLIC PN,CMP [CHEM] AM MAGNESIUM [CHEM] AM 05/17/20 05:11 CBC WITH AUTO DIFF [HEME] AM COMPREHENSIVE METABOLIC PN,CMP [CHEM] AM MAGNESIUM [CHEM] AM 05/18/20 05:11 CBC WITH AUTO DIFF [HEME] AM COMPREHENSIVE METABOLIC PN,CMP [CHEM] AM MAGNESIUM [CHEM] AM - Plan Plan:: This 74-year-old female admitted with acute hypoxic respiratory failure, COVID- 19, viral pneumonia, and community-acquired pneumonia 1. Acute hypoxic respiratory failure/COVID-19/viral pneumonia/CAP -Continues to improve oxygen needs down to 2 L -Oxygen to keep sats greater than 92% -Blood cultures pending, sputum culture also pending -Continue cefepime and azithromycin -Continue remdesivir 100 mg IV daily x4 days -Dexamethasone 6 mg p.o. daily -Encourage I-S and Acapella use -Combivent as needed -Self proning up to 12 to 14 hours a day as possible. Did community health counselor patient on this and she verbalized understanding. -Lovenox 40 mg daily -Monitor LFTs daily -Echo pending 2. Pulmonary fibrosis/COPD -Continue Anoro -Combivent as needed 3. Anxiety -Continue home medications VTE prophylaxis: Lovenox GI prophylaxis: Protonix CODE STATUS: Full code Dispo 2 to 3 days pending improvement
[2020-05-14 08:41] LABS: BLOOD UREA NITROGEN,BUN 21 mg/dL (7.0-18.0); CARBON DIOXIDE,CO2 23.3 mmol/L (21.0-32.0); CHLORIDE,CL 107 mmol/L (98-107); GLUCOSE RANDOM 133 mg/dL (74-106); POTASSIUM,K 4.2 mmol/L (3.5-5.1); SODIUM,NA 141 mmol/L (136-145)
[2020-05-14] MEDS: Allopurinol 100 MG Tab PO SCH (09:15)
[2020-05-14] MEDS: Dorzolamide/Timolol 2%-0.5% Ophth Soln 10 ML Bottle EYEBOTH SCH (10:56)
[2020-05-14] MEDS: Cefepime 2 GM in Premix Bag 1 BAG IV SCH ×2 (11:37→23:41)
[2020-05-14] MEDS: Azithromycin 500 MG in Sodium Chloride 0.9% 250 ML IV SCH (12:26)
[2020-05-14] MEDS: Enoxaparin 40 MG/0.4 ML Syringe SUBCUT SCH (15:31)
[2020-05-14] MEDS: REMDESIVIR 100 MG in Sodium Chloride 0.9% 100 ML IV SCH (15:32)
[2020-05-14] MEDS: Acetaminophen 325 MG Tab PO PRN (21:56)
[2020-05-14] MEDS: Latanoprost 0.005% Ophth Soln 2.5 ML Bottle EYEBOTH SCH (21:58)
[2020-05-14] MEDS: hydrOXYzine Pamoate 25 MG Cap PO PRN (22:01)
[2020-05-15 06:15] LABS: POTASSIUM,K 3.4 mmol/L (3.5-5.1)
[2020-05-15] MEDS: Pantoprazole 40 MG Tab.CR PO SCH (06:56)
[2020-05-15] MEDS: busPIRone 5 MG Tab PO SCH ×3 (06:57→22:59)
[2020-05-15] MEDS ORDERED: Potassium Chloride 20 MEQ Tab.ER PO ONE (08:06)
--- NOTE | 2020-05-15 08:07 | PCM.PN ---
- General Info Date of Service: 05/15/20 Admission Dx/Problem (Free Text): Admission Diagnosis/Problem Admission Diagnosis/Problem Pneumonia Subjective Update: Continues to feel improved today. Reports right-sided pain has significantly improved and is nearly gone. Reports shortness of a significantly improved as well she reports she was up standing brushing her teeth washing her face and went to the bathroom this morning without significant issues. She did have oxygen on at this time. Continues to feel tired but this is also slowly improving. Mild congested cough with intermittent sputum production. Functional Status: Reports: Pain Controlled, Tolerating Diet, Ambulating, Urinating - Review of Systems General: Reports: Fatigue, Malaise HEENT: Reports: No Symptoms. Denies: Headaches, Sore Throat Pulmonary: Reports: Cough, Sputum. Denies: Shortness of Breath Cardiovascular: Reports: No Symptoms Gastrointestinal: Reports: No Symptoms. Denies: Abdominal Pain, Nausea, Vomiting Genitourinary: Reports: No Symptoms. Denies: Dysuria, Frequency, Burning Musculoskeletal: Reports: No Symptoms Skin: Reports: No Symptoms Neurological: Reports: No Symptoms Psychiatric: Reports: No Symptoms - Patient Data Vitals - Most Recent: Last Vital Signs Temp 96.3 F L 05/15/20 05:00 Pulse 65 05/15/20 05:00 Resp 18 05/15/20 05:00 BP 134/66 05/15/20 05:00 Pulse Ox 97 05/15/20 05:00 Weight - Most Recent: 75.795 kg I&O - Last 24 Hours: Intake & Output 05/14/20 05/15/20 05/15/20 22:59 06:59 14:59 Intake Total 1080 450 Output Total 700 400 Balance 380 50 Lab Results Last 24 Hours: Laboratory Results - last 24 hr 05/14/20 05/15/20 05/15/20 Range/Units 07:15 05:43 05:43 WBC 8.37 (4.0-11.0) K/uL RBC 4.17 L (4.30-5.90) M/uL Hgb 12.2 (12.0-16.0) g/dL Hct 37.8 (36.0-46.0) % MCV 90.6 (80.0-98.0) fL MCH 29.3 (27.0-32.0) pg MCHC 32.3 (31.0-37.0) g/dL RDW Std Deviation 45.8 (28.0-62.0) fl RDW Coeff of Oscar 14 (11.0-15.0) % Plt Count 274 (150-400) K/uL MPV 9.70 (7.40-12.00) fL Neut % (Auto) 69.5 (48.0-80.0) % Lymph % (Auto) 21.4 (16.0-40.0) % [place] % (Auto) 8.0 (0.0-15.0) % Eos % (Auto) 1.0 (0.0-7.0) % Baso % (Auto) 0.1 (0.0-1.5) % Neut # (Auto) 5.8 H (1.4-5.7) K/uL Lymph # (Auto) 1.8 (0.6-2.4) K/uL [place] # (Auto) 0.7 (0.0-0.8) K/uL Eos # (Auto) 0.1 (0.0-0.7) K/uL Baso # (Auto) 0.0 (0.0-0.1) K/uL Nucleated RBC % 0.0 /100WBC Nucleated RBCs # 0 K/uL Sodium 141 144 (136-145) mmol/L Potassium 4.2 3.4 L (3.5-5.1) mmol/L Chloride 107 110 H (98-107) mmol/L Carbon Dioxide 23.3 26.0 (21.0-32.0) mmol/L BUN 21 H 21 H (7.0-18.0) mg/dL Creatinine 0.9 1.1 H (0.6-1.0) mg/dL Est Cr Clr Drug Dosing 47.36 38.75 mL/min Estimated GFR (MDRD) > 60.0 48.6 ml/min Glucose 133 H 94 (74-106) mg/dL Calcium 9.0 8.5 (8.5-10.1) mg/dL Magnesium 2.2 2.2 (1.8-2.4) mg/dL Total Bilirubin 0.3 0.2 (0.2-1.0) mg/dL AST 40 H 23 (15-37) IU/L ALT 28 23 (14-63) IU/L Alkaline Phosphatase 86 71 (46-116) U/L Total Protein 6.4 5.9 L (6.4-8.2) g/dL Albumin 2.6 L 2.3 L (3.4-5.0) g/dL Globulin 3.8 3.6 (2.6-4.0) g/dL Albumin/Globulin Ratio 0.7 L 0.6 L (0.9-1.6) Fan Results Last 24 Hours: Microbiology 05/13/20 12:38 Aerobic Blood Culture - Preliminary Blood - Venous - Lab Draw NO GROWTH AFTER 1 DAY Anaerobic Blood Culture - Preliminary NO GROWTH AFTER 1 DAY 05/13/20 12:33 Aerobic Blood Culture - Preliminary Blood - Venous NO GROWTH AFTER 1 DAY Anaerobic Blood Culture - Preliminary NO GROWTH AFTER 1 DAY 05/14/20 04:50 Gram Stain - Final Sputum - Expectorated Med Orders - Current: Current Medications Acetaminophen (Tylenol) 650 mg PO Q4H PRN PRN Reason: Pain (Mild 1-3)/fever Last Admin: 05/14/20 21:56 Dose: 650 mg Documented by: Allopurinol (Zyloprim) 200 mg PO DAILY [facility] Last Admin: 05/14/20 09:15 Dose: 200 mg Documented by: Buspirone HCl (Buspar) 15 mg PO TID [facility] Last Admin: 05/15/20 06:57 Dose: 15 mg Documented by: Dexamethasone (Dexamethasone) 6 mg PO DAILY [facility] Docusate Sodium (Colace) 100 mg PO BID PRN PRN Reason: Constipation Enoxaparin Sodium (Lovenox) 40 mg SUBCUT Q24H [facility] Last Admin: 05/14/20 15:31 Dose: 40 mg Documented by: Hydroxyzine Pamoate (Vistaril) 50 mg PO TID PRN PRN Reason: Anxiety Last Admin: 05/14/20 22:01 Dose: 50 mg Documented by: Remdesivir 100 mg/ Sodium (Chloride) 100 mls @ 100 mls/hr IV Q24H [facility] Stop: 05/17/20 16:14 Last Admin: 05/14/20 15:32 Dose: 100 mls/hr Documented by: Cefepime HCl 2 gm/ Premix 50 mls @ 100 mls/hr IV Q12H [facility] Last Admin: 05/14/20 23:41 Dose: 100 mls/hr Documented by: Azithromycin 500 mg/ Sodium (Chloride) 250 mls @ 250 mls/hr IV Q24H [facility] Last Admin: 05/14/20 12:26 Dose: 250 mls/hr Documented by: Latanoprost (Xalatan 0.005% Ophth Soln) 0 ml EYEBOTH BEDTIME ANYI Last Admin: 05/14/20 21:58 Dose: 1 drop Documented by: Ondansetron HCl (Zofran) 4 mg IVPUSH Q4H PRN PRN Reason: Nausea Pantoprazole Sodium (Protonix) 40 mg PO ACBREAKFAST [facility] Last Admin: 05/15/20 06:56 Dose: 40 mg Documented by: Dorzolamide/Timolol 2%-0.5% Ophth Soln 10 Ml Bottle 0 each EYEBOTH DAILY [facility] Last Admin: 05/14/20 10:56 Dose: 1 each Documented by: Umeclidinium Brm/Vilanterol Tr [Anoro Ellipta 62.5-25 Mcg 1 each INH DAILY [facility] Last Admin: 05/14/20 10:56 Dose: 1 each Documented by: Potassium Chloride (Klor-Con M20) 40 meq PO ONETIME ONE Stop: 05/15/20 08:07 Sodium Chloride (Saline Flush) 2.5 ml FLUSH ASDIRECTED PRN PRN Reason: Keep Vein Open Discontinued Medications Cefepime HCl 2 gm/ Premix 50 mls @ 100 mls/hr IV ONETIME ONE Stop: 05/13/20 12:38 Last Admin: 05/13/20 13:04 Dose: 100 mls/hr Documented by: Azithromycin 500 mg/ Sodium (Chloride) 250 mls @ 250 mls/hr IV ONETIME [facility] Last Admin: 05/13/20 14:38 Dose: 250 mls/hr Documented by: Remdesivir 200 mg/ Sodium (Chloride) 250 mls @ 250 mls/hr IV ONETIME ONE Stop: 05/13/20 13:37 Last Admin: 05/13/20 16:43 Dose: 250 mls/hr Documented by: Remdesivir 200 mg/ Sodium (Chloride) 250 mls @ 250 mls/hr IV ONETIME [facility] Stop: 05/13/20 16:00 Iopamidol (Isovue Multipack-370 (76%)) 80 ml IVPUSH ONETIME STA Stop: 05/13/20 11:45 Last Admin: 05/13/20 11:44 Dose: 80 ml Documented by: Methylprednisolone Sodium Succinate (Solu-Medrol) 125 mg IVPUSH ONETIME ONE Stop: 05/13/20 09:45 Last Admin: 05/13/20 09:50 Dose: 125 mg Documented by: Sodium Chloride (Saline Flush) 10 ml FLUSH ASDIRECTED PRN PRN Reason: Keep Vein Open Last Admin: 05/13/20 09:50 Dose: 10 ml Documented by: Sodium Chloride (Saline Flush) 2.5 ml FLUSH ASDIRECTED PRN PRN Reason: Keep Vein Open Last Admin: 05/13/20 09:50 Dose: 2.5 ml Documented by: - Exam Quality Assessment: Supplemental Oxygen (Was on 2 L this morning has been weaned by respiratory therapist this morning to room air continue to monitor.), DVT Prophylaxis General: Alert, Oriented, Cooperative, No Acute Distress Lungs: Normal Respiratory Effort, Crackles (Fine bibasilar). No: Wheezing Cardiovascular: Regular Rate, Regular Rhythm GI/Abdominal Exam: Normal Bowel Sounds, Soft, Non-Tender Extremities: Normal Inspection, Normal Range of Motion, Non-Tender, No Pedal Edema Skin: Warm, Dry Neurological: No New Focal Deficit Psy/Mental Status: Alert, Normal Affect, Normal Mood Sepsis Event Note - Evaluation Sepsis Screening Result: No Definite Risk - Focused Exam Vital Signs: Vital Signs Temp Pulse Resp BP Pulse Ox 05/15/20 05:00 96.3 F L 65 18 134/66 97 05/14/20 23:36 97.4 F 68 20 128/69 95 05/14/20 21:54 97.1 F 68 19 136/83 95 - Problem List & Annotations (1) Viral pneumonia SNOMED Code(s): 98845875 Code(s): J12.9 - VIRAL PNEUMONIA, UNSPECIFIED Status: Acute Current Visi t: Yes (2) Community acquired pneumonia SNOMED Code(s): 948706412 Code(s): J18.9 - PNEUMONIA, UNSPECIFIED ORGANISM Status: Acute Current Visit: Yes (3) Emphysema lung SNOMED Code(s): 40782515 Code(s): J43.9 - EMPHYSEMA, UNSPECIFIED Status: Acute Current Visit: Yes (4) COVID-19 SNOMED Code(s): 917040509 Code(s): U07.1 - COVID-19 Status: Acute Current Visit: Yes (5) Anxiety SNOMED Code(s): 80817465 Code(s): F41.9 - ANXIETY DISORDER, UNSPECIFIED Status: Chronic Current Visit: No Onset Date: 01/18/14 - Problem List Review Problem List Initiated/Reviewed/Updated: Yes - My Orders Last 24 Hours: My Active Orders 05/14/20 07:30 Pantoprazole [ProTONIX] 40 mg PO ACBREAKFAST 05/14/20 09:00 Patient's Own Medication [Ptom] 0 each EYEBOTH DAILY Patient's Own Medication [Ptom] 1 each INH DAILY allopurinoL [Zyloprim] 200 mg PO DAILY 05/14/20 12:30 Azithromycin [Zithromax] 500 mg Sodium Chloride 0.9% [Normal Saline (AdvBag)] 250 ml IV Q24H 05/14/20 14:24 Faculty Physician Discontinue [Cardiac Monitoring Discontinue] [RC] Click to Edit 05/14/20 15:08 Echo Comp wo Cont [US] Routine 05/14/20 15:15 Remdesivir 100 mg Sodium Chloride 0.9% [Normal Saline] 100 ml IV Q24H 05/15/20 08:06 Potassium Chloride [Klor-Con M20] 40 meq PO ONETIME ONE 05/15/20 09:00 dexAMETHasone 6 mg PO DAILY 05/16/20 05:11 CBC WITH AUTO DIFF [HEME] AM COMPREHENSIVE METABOLIC PN,CMP [CHEM] AM MAGNESIUM [CHEM] AM 05/17/20 05:11 CBC WITH AUTO DIFF [HEME] AM COMPREHENSIVE METABOLIC PN,CMP [CHEM] AM MAGNESIUM [CHEM] AM 05/18/20 05:11 CBC WITH AUTO DIFF [HEME] AM COMPREHENSIVE METABOLIC PN,CMP [CHEM] AM MAGNESIUM [CHEM] AM - Plan Plan:: This 74-year-old female admitted with acute hypoxic respiratory failure, COVID-19, viral pneumonia, and community-acquired pneumonia 1. Acute hypoxic respiratory failure/COVID-19/viral pneumonia/CAP -Acute hypoxic respiratory failure has resolved -Continues to improve oxygen needs down to 2 L wean as possible -Oxygen to keep sats greater than 92% -Blood cultures negative x1 day, sputum culture also pending -Continue cefepime and azithromycin -Continue remdesivir 100 mg IV daily x4 days -Dexamethasone 6 mg p.o. daily -Encourage I-S and Acapella use -Combivent as needed -Self proning up to 12 to 14 hours a day as possible. Did chromosomal disorders counselor patient on this and she verbalized understanding. -Lovenox 40 mg daily -Monitor LFTs daily -Echo pending 2. Pulmonary fibrosis/COPD -Continue Anoro -Combivent as needed 3. Anxiety -Continue home medications VTE prophylaxis: Lovenox GI prophylaxis: Protonix CODE STATUS: Full code Dispo possible discharge in 1 to 2 days
[2020-05-15] MEDS: Allopurinol 100 MG Tab PO SCH (09:27)
[2020-05-15] MEDS: Dexamethasone 4 MG Tab PO SCH (09:28)
[2020-05-15] MEDS: Dorzolamide/Timolol 2%-0.5% Ophth Soln 10 ML Bottle EYEBOTH SCH (09:29)
[2020-05-15] MEDS: Cefepime 2 GM in Premix Bag 1 BAG IV SCH ×2 (12:16→23:48)
[2020-05-15] MEDS: Azithromycin 500 MG in Sodium Chloride 0.9% 250 ML IV SCH (13:08)
[2020-05-15] MEDS: Enoxaparin 40 MG/0.4 ML Syringe SUBCUT SCH (14:22)
[2020-05-15] MEDS: REMDESIVIR 100 MG in Sodium Chloride 0.9% 100 ML IV SCH (15:54)
[2020-05-15] MEDS: Latanoprost 0.005% Ophth Soln 2.5 ML Bottle EYEBOTH SCH (20:02)
[2020-05-15] MEDS: hydrOXYzine Pamoate 25 MG Cap PO PRN (23:09)
[2020-05-16 06:12] LABS: CARBON DIOXIDE,CO2 25.8 mmol/L (21.0-32.0); POTASSIUM,K 4.7 mmol/L (3.5-5.1)
[2020-05-16] MEDS: Pantoprazole 40 MG Tab.CR PO SCH (06:38)
[2020-05-16] MEDS: busPIRone 5 MG Tab PO SCH ×3 (06:38→22:17)
[2020-05-16] MEDS: Dexamethasone 4 MG Tab PO SCH (09:11)
[2020-05-16] MEDS: Allopurinol 100 MG Tab PO SCH (09:11)
[2020-05-16] MEDS: Dorzolamide/Timolol 2%-0.5% Ophth Soln 10 ML Bottle EYEBOTH SCH (09:13)
[2020-05-16] MEDS: Cefepime 2 GM in Premix Bag 1 BAG IV SCH ×2 (10:44→22:53)
--- NOTE | 2020-05-16 10:59 | PCM.PN ---
- General Info Date of Service: 05/16/20 Admission Dx/Problem (Free Text): Admission Diagnosis/Problem Admission Diagnosis/Problem Pneumonia Subjective Update: Continues to feel improved today. Needing 1 to 2 L of oxygen intermittently overnight. Denies any chest pain. Reports shortness of breath with exertion only. Reports intermittent productive cough. Right flank lung pain has improved. Denies any concerns or questions. We did discuss the possibility of home oxygen on discharge she verbalized understanding. Functional Status: Reports: Pain Controlled, Tolerating Diet, Ambulating, Urinating - Review of Systems General: Reports: Fatigue, Malaise HEENT: Reports: No Symptoms. Denies: Headaches, Sinus Congestion Pulmonary: Reports: Shortness of Breath, Cough, Sputum (Intermittent) Cardiovascular: Reports: Dyspnea on Exertion Gastrointestinal: Reports: No Symptoms. Denies: Abdominal Pain, Nausea, Vomiting Genitourinary: Reports: No Symptoms. Denies: Dysuria, Frequency, Burning Musculoskeletal: Reports: No Symptoms Skin: Reports: No Symptoms Neurological: Reports: No Symptoms Psychiatric: Reports: No Symptoms - Patient Data Vitals - Most Recent: Last Vital Signs Temp 96.8 F L 05/16/20 09:00 Pulse 68 05/16/20 09:00 Resp 18 05/16/20 09:00 BP 105/72 05/16/20 09:00 Pulse Ox 94 L 05/16/20 09:00 Weight - Most Recent: 75.795 kg I&O - Last 24 Hours: Intake & Output 05/15/20 05/16/20 05/16/20 22:59 06:59 14:59 Intake Total 1180 500 Balance 1180 500 Lab Results Last 24 Hours: Laboratory Results - last 24 hr 05/16/20 05/16/20 Range/Units 05:35 05:35 WBC 7.32 (4.0-11.0) K/uL RBC 4.20 L (4.30-5.90) M/uL Hgb 12.2 (12.0-16.0) g/dL Hct 38.4 (36.0-46.0) % MCV 91.4 (80.0-98.0) fL MCH 29.0 (27.0-32.0) pg MCHC 31.8 (31.0-37.0) g/dL RDW Std Deviation 45.9 (28.0-62.0) fl RDW Coeff of Oscar 14 (11.0-15.0) % Plt Count 286 (150-400) K/uL MPV 9.90 (7.40-12.00) fL Neut % (Auto) 82.7 H (48.0-80.0) % Lymph % (Auto) 11.5 L (16.0-40.0) % [place] % (Auto) 5.7 (0.0-15.0) % Eos % (Auto) 0.0 (0.0-7.0) % Baso % (Auto) 0.1 (0.0-1.5) % Neut # (Auto) 6.1 H (1.4-5.7) K/uL Lymph # (Auto) 0.8 (0.6-2.4) K/uL [place] # (Auto) 0.4 (0.0-0.8) K/uL Eos # (Auto) 0.0 (0.0-0.7) K/uL Baso # (Auto) 0.0 (0.0-0.1) K/uL Nucleated RBC % 0.0 /100WBC Nucleated RBCs # 0 K/uL Sodium 143 (136-145) mmol/L Potassium 4.7 (3.5-5.1) mmol/L Chloride 110 H (98-107) mmol/L Carbon Dioxide 25.8 (21.0-32.0) mmol/L BUN 22 H (7.0-18.0) mg/dL Creatinine 1.1 H (0.6-1.0) mg/dL Est Cr Clr Drug Dosing 38.75 mL/min Estimated GFR (MDRD) 48.6 ml/min Glucose 121 H (74-106) mg/dL Calcium 8.8 (8.5-10.1) mg/dL Magnesium 2.3 (1.8-2.4) mg/dL Total Bilirubin 0.2 (0.2-1.0) mg/dL AST 24 (15-37) IU/L ALT 21 (14-63) IU/L Alkaline Phosphatase 79 (46-116) U/L Total Protein 6.2 L (6.4-8.2) g/dL Albumin 2.4 L (3.4-5.0) g/dL Globulin 3.8 (2.6-4.0) g/dL Albumin/Globulin Ratio 0.6 L (0.9-1.6) Fan Results Last 24 Hours: Microbiology 05/14/20 04:50 Gram Stain - Final Sputum - Expectorated Sputum Culture - Final Normal Respiratory Danilo YEAST 05/13/20 12:38 Aerobic Blood Culture - Preliminary Blood - Venous - Lab Draw NO GROWTH AFTER 2 DAYS Anaerobic Blood Culture - Preliminary NO GROWTH AFTER 2 DAYS 05/13/20 12:33 Aerobic Blood Culture - Preliminary Blood - Venous NO GROWTH AFTER 2 DAYS Anaerobic Blood Culture - Preliminary NO GROWTH AFTER 2 DAYS Med Orders - Current: Current Medications Acetaminophen (Tylenol) 650 mg PO Q4H PRN PRN Reason: Pain (Mild 1-3)/fever Last Admin: 05/14/20 21:56 Dose: 650 mg Documented by: Allopurinol (Zyloprim) 200 mg PO DAILY [facility] Last Admin: 05/16/20 09:11 Dose: 200 mg Documented by: Buspirone HCl (Buspar) 15 mg PO TID [facility] Last Admin: 05/16/20 06:38 Dose: 15 mg Documented by: Dexamethasone (Dexamethasone) 6 mg PO DAILY [facility] Last Admin: 05/16/20 09:11 Dose: 6 mg Documented by: Docusate Sodium (Colace) 100 mg PO BID PRN PRN Reason: Constipation Enoxaparin Sodium (Lovenox) 40 mg SUBCUT Q24H [facility] Last Admin: 05/15/20 14:22 Dose: 40 mg Documented by: Hydroxyzine Pamoate (Vistaril) 50 mg PO TID PRN PRN Reason: Anxiety Last Admin: 05/15/20 23:09 Dose: 50 mg Documented by: Remdesivir 100 mg/ Sodium (Chloride) 100 mls @ 100 mls/hr IV Q24H [facility] Stop: 05/17/20 16:14 Last Admin: 05/15/20 15:54 Dose: 100 mls/hr Documented by: Cefepime HCl 2 gm/ Premix 50 mls @ 100 mls/hr IV Q12H [facility] Last Admin: 05/16/20 10:44 Dose: 100 mls/hr Documented by: Azithromycin 500 mg/ Sodium (Chloride) 250 mls @ 250 mls/hr IV Q24H [facility] Last Admin: 05/15/20 13:08 Dose: 250 mls/hr Documented by: Latanoprost (Xalatan 0.005% Ophth Soln) 0 ml EYEBOTH BEDTIME [facility] Last Admin: 05/15/20 20:02 Dose: 1 drop Documented by: Ondansetron HCl (Zofran) 4 mg IVPUSH Q4H PRN PRN Reason: Nausea Pantoprazole Sodium (Protonix) 40 mg PO ACBREAKFAST [facility] Last Admin: 05/16/20 06:38 Dose: 40 mg Documented by: Dorzolamide/Timolol 2%-0.5% Ophth Soln 10 Ml Bottle 0 each EYEBOTH DAILY [facility] Last Admin: 05/16/20 09:13 Dose: 1 each Documented by: Umeclidinium Brm/Vilanterol Tr [Anoro Ellipta 62.5-25 Mcg 1 each INH DAILY [facility] Last Admin: 05/16/20 09:14 Dose: 1 each Documented by: Sodium Chloride (Saline Flush) 2.5 ml FLUSH ASDIRECTED PRN PRN Reason: Keep Vein Open Discontinued Medications Cefepime HCl 2 gm/ Premix 50 mls @ 100 mls/hr IV ONETIME ONE Stop: 05/13/20 12:38 Last Admin: 05/13/20 13:04 Dose: 100 mls/hr Documented by: Azithromycin 500 mg/ Sodium (Chloride) 250 mls @ 250 mls/hr IV ONETIME [facility] Last Admin: 05/13/20 14:38 Dose: 250 mls/hr Documented by: Remdesivir 200 mg/ Sodium (Chloride) 250 mls @ 250 mls/hr IV ONETIME ONE Stop: 05/13/20 13:37 Last Admin: 05/13/20 16:43 Dose: 250 mls/hr Documented by: Remdesivir 200 mg/ Sodium (Chloride) 250 mls @ 250 mls/hr IV ONETIME [facility] Stop: 05/13/20 16:00 Iopamidol (Isovue Multipack-370 (76%)) 80 ml IVPUSH ONETIME STA Stop: 05/13/20 11:45 Last Admin: 05/13/20 11:44 Dose: 80 ml Documented by: Methylprednisolone Sodium Succinate (Solu-Medrol) 125 mg IVPUSH ONETIME ONE Stop: 05/13/20 09:45 Last Admin: 05/13/20 09:50 Dose: 125 mg Documented by: Potassium Chloride (Klor-Con M20) 40 meq PO ONETIME ONE Stop: 05/15/20 08:07 Last Admin: 05/15/20 09:27 Dose: 40 meq Documented by: Sodium Chloride (Saline Flush) 10 ml FLUSH ASDIRECTED PRN PRN Reason: Keep Vein Open Last Admin: 05/13/20 09:50 Dose: 10 ml Documented by: Sodium Chloride (Saline Flush) 2.5 ml FLUSH ASDIRECTED PRN PRN Reason: Keep Vein Open Last Admin: 05/13/20 09:50 Dose: 2.5 ml Documented by: - Exam Quality Assessment: Supplemental Oxygen (1 to 2 L intermittently especially with exertion), DVT Prophylaxis General: Alert, Oriented, Cooperative Lungs: Normal Respiratory Effort, Decreased Breath Sounds (Bibasilar) Cardiovascular: Regular Rate, Regular Rhythm GI/Abdominal Exam: Normal Bowel Sounds, Soft, Non-Tender Back Exam: Normal Inspection, Full Range of Motion Extremities: Normal Inspection, Normal Range of Motion, Non-Tender, No Pedal Edema Wound/Incisions: Healing Well Neurological: No New Focal Deficit Psy/Mental Status: Alert, Normal Affect, Normal Mood Sepsis Event Note - Evaluation Sepsis Screening Result: No Definite Risk - Focused Exam Vital Signs: Vital Signs Temp Pulse Resp BP Pulse Ox 05/16/20 09:00 96.8 F L 68 18 105/72 94 L 05/16/20 03:12 96.9 F 59 L 18 151/83 H 95 05/15/20 23:49 96.9 F 60 18 123/68 94 L - Problem List & Annotations (1) Viral pneumonia SNOMED Code(s): 19807611 Code(s): J12.9 - VIRAL PNEUMONIA, UNSPECIFIED Status: Acute Current Visit: Yes (2) Community acquired pneumonia SNOMED Code(s): 268509321 Code(s): J18.9 - PNEUMONIA, UNSPECIFIED ORGANISM Status: Acute Current Visit: Yes (3) Emphysema lung SNOMED Code(s): 60870549 Code(s): J43.9 - EMPHYSEMA, UNSPECIFIED Status: Acute Current Visit: Yes (4) COVID-19 SNOMED Code(s): 611683759 Code(s): U07.1 - COVID-19 Status: Acute Current Visit: Yes (5) Anxiety SNOMED Code(s): 54559656 Code(s): F41.9 - ANXIETY DISORDER, UNSPECIFIED Status: Chronic Current Visit: No Onset Date: 01/18/14 - Problem List Review Problem List Initiated/Reviewed/Updated: Yes - My Orders Last 24 Hours: My Active Orders 05/17/20 05:11 CBC WITH AUTO DIFF [HEME] AM COMPREHENSIVE METABOLIC PN,CMP [CHEM] AM MAGNESIUM [CHEM] AM 05/18/20 05:11 CBC WITH AUTO DIFF [HEME] AM COMPREHENSIVE METABOLIC PN,CMP [CHEM] AM MAGNESIUM [CHEM] AM - Plan Plan:: This 74-year-old female admitted with acute hypoxic respiratory failure, COVID- 19, viral pneumonia, and community-acquired pneumonia 1. Acute hypoxic respiratory failure/COVID-19/viral pneumonia/CAP -Continues to improve oxygen needs down to 1-2 L wean as possible -Oxygen to keep sats greater than 92% -Blood cultures negative, sputum culture normal respiratory danilo -Continue cefepime and azithromycin -Continue remdesivir 100 mg IV daily x4 days -Dexamethasone 6 mg p.o. daily -Encourage I-S and Acapella use -Combivent as needed -Self proning up to 12 to 14 hours a day as possible. Did res counselor patient on this and she verbalized understanding. -Lovenox 40 mg daily -Monitor LFTs daily -Echo echo reveals moderate aortic stenosis likely secondary to history of rheumatic fever as a teenager. Will arrange outpatient cardiology appointment patient was made aware of echo findings. 2. Pulmonary fibrosis/COPD -Continue Anoro -Combivent as needed 3. Anxiety -Continue home medications VTE prophylaxis: Lovenox GI prophylaxis: Protonix CODE STATUS: Full code Dispo possible discharge in 1 to 2 days
[2020-05-16] MEDS: Azithromycin 500 MG in Sodium Chloride 0.9% 250 ML IV SCH (11:37)
[2020-05-16] MEDS: Enoxaparin 40 MG/0.4 ML Syringe SUBCUT SCH (14:36)
[2020-05-16] MEDS: REMDESIVIR 100 MG in Sodium Chloride 0.9% 100 ML IV SCH (14:39)
[2020-05-16] MEDS: Acetaminophen 325 MG Tab PO PRN (15:34)
[2020-05-16] MEDS: Latanoprost 0.005% Ophth Soln 2.5 ML Bottle EYEBOTH SCH (20:39)
[2020-05-16] MEDS: hydrOXYzine Pamoate 25 MG Cap PO PRN (22:16)
[2020-05-17 06:28] LABS: BLOOD UREA NITROGEN,BUN 23 mg/dL (7.0-18.0); CARBON DIOXIDE,CO2 26.7 mmol/L (21.0-32.0); CHLORIDE,CL 111 mmol/L (98-107); GLUCOSE RANDOM 115 mg/dL (74-106); POTASSIUM,K 4.7 mmol/L (3.5-5.1); SODIUM,NA 144 mmol/L (136-145)
[2020-05-17] MEDS: busPIRone 5 MG Tab PO SCH ×2 (06:53→13:28)
[2020-05-17] MEDS: Pantoprazole 40 MG Tab.CR PO SCH (06:54)
[2020-05-17] MEDS: Dexamethasone 4 MG Tab PO SCH (09:27)
[2020-05-17] MEDS: Allopurinol 100 MG Tab PO SCH (09:28)
[2020-05-17] MEDS: Dorzolamide/Timolol 2%-0.5% Ophth Soln 10 ML Bottle EYEBOTH SCH (09:29)
--- NOTE | 2020-05-17 10:07 | ECHO ---
EXAM DATE: 05/13/20 PATIENT'S AGE: 74 The ECHO report has been scanned into [employer] and can be seen in this patient's EMR (Electronic Medical Record) under the REPORTS section. The report has also been scanned into PACS. [facility]
--- NOTE | 2020-05-17 10:27 | PCM.DCSUM1 ---
Discharge Summary - Hospital Course Brief History: This 74-year-old female with past medical history of COPD, recurrent pneumonia presented to the ER with not feeling well for at least 2 weeks. She reports that she is progressively worsened. It initially started when she was seen by an oral surgeon in [facility] for abscessed tooth and she was placed on amoxicillin. She reports after taking the amoxicillin she felt she became generally tired and fatigued and did not feel well. She reports intermittent nausea no vomiting and shortness of breath. She denies any sinus congestion neck pain sore throat no loss of smell or taste and no chest pain. She reports that she has become very short of breath with any movement within her home even a very short distance. She reports she has an intermittent cough that has been cold sputum in color and had one episode of hemoptysis yesterday. She denies any abdominal pain dysuria or constipation or diarrhea. She reports she has had known contacts that are positive with Covid. She denies any tobacco use she is a former user. No recreational drug use and no alcohol use. In the ER no leukocytosis noted platelets and hemoglobin stable D-dimer severely elevated at 20. Troponin negative Covid swab positive influenza negative. Chest x-ray revealed bilateral patchy infiltrates. Due to the elevated D-dimer CTA of the chest was obtained which reveals mildly enlarged heart with mediastinal lymphadenopathy which is likely reactive there is no evidence of pulmonary embolus. There is significant chronic lung disease which is a mix of emphysema and fibrosis with areas of honeycombing. There is a cavity in the right lower lobe containing abnormal fluid of soft tissue this is not necrotizing pneumonia but rather a superinfection of a pre-existing cavity. Bilateral lower lobe airspace disease could represent a separate inflammatory process such as pneumonia including the possibility of Covid pneumonia. She was treated with cefepime in the ER blood cultures and urine sample obtained. Lactic acid normal at 2. She was noted to be 84% on room air upon arrival, she was placed on 4 L of oxygen due to hypoxia. She will be admitted inpatient for acute hypoxic respiratory failure, COVID-19 pneumonia, viral pneumonia, community-acquired pneumonia. Diagnosis: Stroke: No - Discharge Data Discharge Date: 05/17/20 Discharge Disposition: Home, Self-Care 01 Condition: Good - Referral to Home Health Primary Care Physician: PCP None - Discharge Diagnosis/Problem(s) (1) Viral pneumonia SNOMED Code(s): 48032944 ICD Code: J12.9 - VIRAL PNEUMONIA, UNSPECIFIED Status: Acute Current Visit: Yes (2) Community acquired pneumonia SNOMED Code(s): 334323544 ICD Code: J18.9 - PNEUMONIA, UNSPECIFIED ORGANISM Status: Acute Current Visit: Yes (3) Emphysema lung SNOMED Code(s): 49397713 ICD Code: J43.9 - EMPHYSEMA, UNSPECIFIED Status: Acute Current Visit: Yes (4) COVID-19 SNOMED Code(s): 959377175 ICD Code: U07.1 - COVID-19 Status: Acute Current Visit: Yes (5) Anxiety SNOMED Code(s): 55453312 ICD Code: F41.9 - ANXIETY DISORDER, UNSPECIFIED Status: Chronic Current Visit: No Onset Date: 01/18/14 - Patient Summary/Data Hospital Course: Admission diagnoses Acute hypoxic respiratory failure COVID-19 viral pneumonia Community-acquired pneumonia Discharge diagnoses: Acute hypoxic respiratory failure COVID-19 viral pneumonia Community-acquired pneumonia Aortic valve stenosis, moderate Other PMH: Pulmonary fibrosis Anxiety Hypothyroidism Donna was admitted secondary to acute hypoxic respiratory failure. She was noted to be satting in the 70s on arrival to the ER she was placed on 4 L of oxygen with improvement. Chest x-ray and subsequent CT angiography of the chest revealed COVID-19 viral pneumonia along with superimposed right lower lobe bacterial pneumonia. She was started on cefepime and azithromycin along with COVID-19 treatments of remdesivir as well as dexamethasone. Covid swab was positive. Oxygen was weaned steadily throughout her stay. On day 1 she continued to have significant improvement and was feeling much better albeit still fatigued and needing oxygen. Today day 5 of admission she is feeling significantly improved she is up moving in her room independently. She is noted to have some mild dyspnea on exertion. She was noted to be hypoxic with exertion on room air at 86%. She was placed on 1 L and sats increased to 91%. And dyspnea improved she will be discharged home today with oxygen 1 L nasal cannula with activity. She is to continue pulmonary toilet at home including Acapella I-S and cough and breathing. She will have last dose of remdesivir today along with dexamethasone. She will be sent home with 3 more days of Levaquin for community-acquired pneumonia. During admission it was noted she had mild cardiomegaly on CT. Echo was obtained which showed normal EF but did show moderate aortic valve stenosis. She reports she had a history of rheumatic fever x2 as a teenager and was significantly ill and noted to have a murmur at that time. She was made aware of echo findings and I will set her up with cardiology as an outpatient for further management. She is feeling improved today and okay with discharge plan home. She was notified of side effects of antibiotics and requested probiotics. She was also counseled on oxygen use at home. She is to return to PCP in 1 to 2 weeks return to ER clinic sooner if concerns should arise. - Patient Instructions Diet: Regular Diet as Tolerated Activity: No Strenuous Activities, Rest and Relax Today Showering/Bathing: May Shower Notify Provider of: Fever, Increased Pain, Swelling and Redness, Drainage, Nausea and/or Vomiting Other/Special Instructions: Quarantine for total of 20 days since beginning of symptoms, which means today would be last day. Please continue to monitor symptoms and remain on quarantine over weekend. If family is around insure masks are worn by everyone. Continue to practice social distancing and masking in public. Continue IS and acapella at home, deep breathing and coughing. - Discharge Plan *PRESCRIPTION DRUG MONITORING PROGRAM REVIEWED*: Not Applicable *COPY OF PRESCRIPTION DRUG MONITORING REPORT IN PATIENT LALA: Not Applicable Prescriptions/Med Rec: Lactobacillus Acidophilus [Acidophilus] 1 each PO DAILY #30 capsule levoFLOXacin [Levaquin] 750 mg PO DAILY #3 tab Home Medications: Home Meds Allopurinol [Zyloprim] 200 mg PO DAILY 05/13/20 [History] Dorzolamide HCl/Timolol Maleat [Dorzolamide-Timolol Eye Drops] 1 drop EYEBOTH DAILY 05/13/20 [History] Latanoprost/Pf [Latanoprost 0.005% Eye Drop] 1 drop EYEBOTH BEDTIME 05/13/20 [History] Umeclidinium Brm/Vilanterol Tr [Anoro Ellipta 62.5-25 MCG] 1 inh IH DAILY 05/13/20 [History] busPIRone [Buspar] 15 mg PO TID 05/13/20 [History] hydrOXYzine HCL [Hydroxyzine HCl] 50 mg PO TID PRN 05/13/20 [History] Acetaminophen [Tylenol] 650 mg PO Q4H PRN tablet 05/17/20 [Rx] Lactobacillus Acidophilus [Acidophilus] 1 each PO DAILY #30 capsule 05/17/20 [Rx] levoFLOXacin [Levaquin] 750 mg PO DAILY #3 tab 05/17/20 [Rx] Oxygen Therapy Mode: Nasal Cannula (with activity only, 1 L) Oxygen Flow Rate (L/min): 1 (with activity) Patient Handouts: COVID-19: What Your Test Results Mean - CDC, COVID-19 Frequently Asked Questions, Aortic Valve Stenosis, COVID-19, Lactobacillus Oral formulations, COVID-19: How to Protect Yourself and Others - [facility], Levofloxacin tablets, Community-Acquired Pneumonia, Adult Referrals: Suad Cain MD [Physician] - 06/26/20 10:00 am Jose Martin Matos MD [Physician] - 05/29/20 9:30 am - Discharge Summary/Plan Comment DC Time >30 min.: No - Patient Data Vitals - Most Recent: Last Vital Signs Temp 96.3 F L 05/17/20 09:00 Pulse 69 05/17/20 09:00 Resp 18 05/17/20 09:00 BP 121/68 05/17/20 09:00 Pulse Ox 96 05/17/20 09:00 Weight - Most Recent: 75.795 kg I&O - Last 24 hours: Intake & Output 05/16/20 05/17/20 05/17/20 22:59 06:59 14:59 Intake Total 600 680 Output Total 1000 0 Balance -400 680 Lab Results - Last 24 hrs: Laboratory Results - last 24 hr 05/17/20 05/17/20 Range/Units 05:50 05:50 WBC 8.35 (4.0-11.0) K/uL RBC 4.12 L (4.30-5.90) M/uL Hgb 12.2 (12.0-16.0) g/dL Hct 37.3 (36.0-46.0) % MCV 90.5 (80.0-98.0) fL MCH 29.6 (27.0-32.0) pg MCHC 32.7 (31.0-37.0) g/dL RDW Std Deviation 45.3 (28.0-62.0) fl RDW Coeff of Oscar 14 (11.0-15.0) % Plt Count 295 (150-400) K/uL MPV 10.20 (7.40-12.00) fL Neut % (Auto) 79.4 (48.0-80.0) % Lymph % (Auto) 13.5 L (16.0-40.0) % [place] % (Auto) 7.1 (0.0-15.0) % Eos % (Auto) 0.0 (0.0-7.0) % Baso % (Auto) 0.0 (0.0-1.5) % Neut # (Auto) 6.6 H (1.4-5.7) K/uL Lymph # (Auto) 1.1 (0.6-2.4) K/uL [place] # (Auto) 0.6 (0.0-0.8) K/uL Eos # (Auto) 0.0 (0.0-0.7) K/uL Baso # (Auto) 0.0 (0.0-0.1) K/uL Nucleated RBC % 0.0 /100WBC Nucleated RBCs # 0 K/uL Sodium 144 (136-145) mmol/L Potassium 4.7 (3.5-5.1) mmol/L Chloride 111 H (98-107) mmol/L Carbon Dioxide 26.7 (21.0-32.0) mmol/L BUN 23 H (7.0-18.0) mg/dL Creatinine 0.9 (0.6-1.0) mg/dL Est Cr Clr Drug Dosing 47.36 mL/min Estimated GFR (MDRD) > 60.0 ml/min Glucose 115 H (74-106) mg/dL Calcium 8.7 (8.5-10.1) mg/dL Magnesium 2.4 (1.8-2.4) mg/dL Total Bilirubin 0.2 (0.2-1.0) mg/dL AST 29 (15-37) IU/L ALT 28 (14-63) IU/L Alkaline Phosphatase 167 H (46-116) U/L Total Protein 6.0 L (6.4-8.2) g/dL Albumin 2.4 L (3.4-5.0) g/dL Globulin 3.6 (2.6-4.0) g/dL Albumin/Globulin Ratio 0.7 L (0.9-1.6) CHRIS Results - Last 24 hrs: Microbiology 05/13/20 12:38 Aerobic Blood Culture - Preliminary Blood - Venous - Lab Draw NO GROWTH AFTER 3 DAYS Anaerobic Blood Culture - Preliminary NO GROWTH AFTER 3 DAYS 05/13/20 12:33 Aerobic Blood Culture - Preliminary Blood - Venous NO GROWTH AFTER 3 DAYS Anaerobic Blood Culture - Preliminary NO GROWTH AFTER 3 DAYS 05/14/20 04:50 Gram Stain - Final Sputum - Expectorated Sputum Culture - Final Normal Respiratory Deborah YEAST Med Orders - Current: Current Medications Acetaminophen (Tylenol) 650 mg PO Q4H PRN PRN Reason: Pain (Mild 1-3)/fever Last Admin: 05/16/20 15:34 Dose: 650 mg Documented by: Allopurinol (Zyloprim) 200 mg PO DAILY [facility] Last Admin: 05/17/20 09:28 Dose: 200 mg Documented by: Buspirone HCl (Buspar) 15 mg PO TID [facility] Last Admin: 05/17/20 06:53 Dose: 15 mg Documented by: Dexamethasone (Dexamethasone) 6 mg PO DAILY [facility] Last Admin: 05/17/20 09:27 Dose: 6 mg Documented by: Docusate Sodium (Colace) 100 mg PO BID PRN PRN Reason: Constipation Enoxaparin Sodium (Lovenox) 40 mg SUBCUT Q24H [facility] Last Admin: 05/16/20 14:36 Dose: 40 mg Documented by: Hydroxyzine Pamoate (Vistaril) 50 mg PO TID PRN PRN Reason: Anxiety Last Admin: 05/16/20 22:16 Dose: 50 mg Documented by: Cefepime HCl 2 gm/ Premix 50 mls @ 100 mls/hr IV Q12H [facility] Last Admin: 05/16/20 22:53 Dose: 100 mls/hr Documented by: Azithromycin 500 mg/ Sodium (Chloride) 250 mls @ 250 mls/hr IV Q24H [facility] Last Admin: 05/16/20 11:37 Dose: 250 mls/hr Documented by: Remdesivir 100 mg/ Sodium (Chloride) 100 mls @ 100 mls/hr IV Q24H [facility] Stop: 05/17/20 14:59 Latanoprost (Xalatan 0.005% Ophth Soln) 0 ml EYEBOTH BEDTIME [facility] Last Admin: 05/16/20 20:39 Dose: 1 drop Documented by: Ondansetron HCl (Zofran) 4 mg IVPUSH Q4H PRN PRN Reason: Nausea Pantoprazole Sodium (Protonix) 40 mg PO ACBREAKFAST [facility] Last Admin: 05/17/20 06:54 Dose: 40 mg Documented by: Dorzolamide/Timolol 2%-0.5% Ophth Soln 10 Ml Bottle 0 each EYEBOTH DAILY [facility] Last Admin: 05/17/20 09:29 Dose: 1 each Documented by: Umeclidinium Brm/Vilanterol Tr [Anoro Ellipta 62.5-25 Mcg 1 each INH DAILY [facility] Last Admin: 05/17/20 09:29 Dose: 1 each Documented by: Sodium Chloride (Saline Flush) 2.5 ml FLUSH ASDIRECTED PRN PRN Reason: Keep Vein Open Discontinued Medications Cefepime HCl 2 gm/ Premix 50 mls @ 100 mls/hr IV ONETIME ONE Stop: 05/13/20 12:38 Last Admin: 05/13/20 13:04 Dose: 100 mls/hr Documented by: Azithromycin 500 mg/ Sodium (Chloride) 250 mls @ 250 mls/hr IV ONETIME [facility] Last Admin: 05/13/20 14:38 Dose: 250 mls/hr Documented by: Remdesivir 200 mg/ Sodium (Chloride) 250 mls @ 250 mls/hr IV ONETIME ONE Stop: 05/13/20 13:37 Last Admin: 05/13/20 16:43 Dose: 250 mls/hr Documented by: Remdesivir 200 mg/ Sodium (Chloride) 250 mls @ 250 mls/hr IV ONETIME [facility] Stop: 05/13/20 16:00 Remdesivir 100 mg/ Sodium (Chloride) 100 mls @ 100 mls/hr IV Q24H [facility] Stop: 05/17/20 16:14 Last Admin: 05/16/20 14:39 Dose: 100 mls/hr Documented by: Iopamidol (Isovue Multipack-370 (76%)) 80 ml IVPUSH ONETIME STA Stop: 05/13/20 11:45 Last Admin: 05/13/20 11:44 Dose: 80 ml Documented by: Methylprednisolone Sodium Succinate (Solu-Medrol) 125 mg IVPUSH ONETIME ONE Stop: 05/13/20 09:45 Last Admin: 05/13/20 09:50 Dose: 125 mg Documented by: Potassium Chloride (Klor-Con M20) 40 meq PO ONETIME ONE Stop: 05/15/20 08:07 Last Admin: 05/15/20 09:27 Dose: 40 meq Documented by: Sodium Chloride (Saline Flush) 10 ml FLUSH ASDIRECTED PRN PRN Reason: Keep Vein Open Last Admin: 05/13/20 09:50 Dose: 10 ml Documented by: Sodium Chloride (Saline Flush) 2.5 ml FLUSH ASDIRECTED PRN PRN Reason: Keep Vein Open Last Admin: 05/13/20 09:50 Dose: 2.5 ml Documented by: - Exam Quality Assessment: Reports: Supplemental Oxygen (With activity) General: Reports: Alert, Oriented, Cooperative, No Acute Distress Lungs: Reports: Normal Respiratory Effort, Decreased Breath Sounds (Bibasilar) Cardiovascular: Reports: Regular Rate, Regular Rhythm, No Murmurs GI/Abdominal Exam: Normal Bowel Sounds, Soft, Non-Tender Back Exam: Reports: Normal Inspection, Full Range of Motion Extremities: Normal Inspection, Normal Range of Motion, Non-Tender, No Pedal Edema Neurological: Reports: No New Focal Deficit Psy/Mental Status: Reports: Alert, Normal Affect, Normal Mood
[2020-05-17] MEDS: Cefepime 2 GM in Premix Bag 1 BAG IV SCH (11:22)
[2020-05-17] MEDS: Azithromycin 500 MG in Sodium Chloride 0.9% 250 ML IV SCH (12:44)
[2020-05-17] MEDS ORDERED: REMDESIVIR 100 MG in Sodium Chloride 0.9% 100 ML IV SCH (14:00)
[2020-05-17] MEDS: Enoxaparin 40 MG/0.4 ML Syringe SUBCUT SCH (14:37)
[2020-05-17 16:59] VITALS: BP 155/77; PULSE 61
== END 2020-05-17 16:40 | disposition home or self-care (01) | DRG 177 ==
LOC: MW.ED 09:26 → MW.MS 12:20
PROVIDERS: ADMIT Internal Medicine; ATTEND Internal Medicine
PROC: XW033E5 Introduction of Remdesivir Anti-infective into Peripheral Vein, Percutaneous Approach, New Technology Group 5 (ICD-10-PCS; principal; 2020-05-13)
DX: U07.1 COVID-19 (principal); J12.82 Pneumonia due to coronavirus disease 2019; J96.01 Acute respiratory failure with hypoxia; J15.9 Unspecified bacterial pneumonia; J43.9 Emphysema, unspecified; H54.7 Unspecified visual loss; I35.0 Nonrheumatic aortic (valve) stenosis; E03.9 Hypothyroidism, unspecified; J44.0 Chronic obstructive pulmonary disease with (acute) lower respiratory infection; M10.9 Gout, unspecified; J84.10 Pulmonary fibrosis, unspecified; F32.9 Major depressive disorder, single episode, unspecified; F41.9 Anxiety disorder, unspecified; Z98.49 Cataract extraction status, unspecified eye; Z88.0 Allergy status to penicillin; Z88.8 Allergy status to other drugs, medicaments and biological substances; Z79.899 Other long term (current) drug therapy
CPT/HCPCS: 0240U; 36415; 36600; 71045; 71275; 80053; 81003; 82803; 83605; 83735; 83880; 84484; 85025; 85379; 85610; 85730; 87040; 87070; 87205; 93005; 93306; 94640; 96374; 99285; 93010; 99283; A9270-GY; J0456; J0692; J1650; J2930; J7050; J8540; Q9967

== ENCOUNTER 2023-01-09 14:13 | Emergency (ER) | payer MEDICARE, BC ==
[2023-01-09] MEDS ORDERED: Pantoprazole 80 MG in Sodium Chloride 0.9% 10 ML IVPUSH ONE (14:49)
[2023-01-09] MEDS ORDERED: Pantoprazole 80 MG in Sodium Chloride 0.9% 20 ML IVPUSH ONE (15:00)
[2023-01-09 15:26] LABS: BASOPHILS ABSOLUTE AUTO 0.1 K/uL (0.0-0.1); BASOPHILS PERCENT AUTO 0.8 % (0.0-1.5); EOSINOPHILS ABSOLUTE AUTO 0.2 K/uL (0.0-0.7); EOSINOPHILS PERCENT AUTO 3.3 % (0.0-7.0); HEMATOCRIT 29.2 % (36.0-46.0); HEMOGLOBIN 9.6 g/dL (12.0-16.0); LYMPHOCYTES ABSOLUTE AUTO 1.2 K/uL (0.6-2.4); LYMPHOCYTES PERCENT AUTO 19.3 % (16.0-40.0); MEAN CORPUSCULAR HEMOGLOBIN 31.1 pg (27.0-32.0); MEAN CORPUSCULAR HGB CONC 32.9 g/dL (31.0-37.0); MEAN CORPUSCULAR VOLUME 94.5 fL (80.0-98.0); MONOCYTES ABSOLUTE AUTO 0.5 K/uL (0.0-0.8); MONOCYTES PERCENT AUTO 7.7 % (0.0-15.0); NEUTROPHILS ABSOLUTE AUTO 4.4 K/uL (1.4-5.7); NEUTROPHILS PERCENT AUTO 68.9 % (48.0-80.0); NRBC ABSOLUTE 0 K/uL; NRBC PERCENT 0.3 /100WBC; PLATELET COUNT,PLT 269 K/uL (150-400); RED BLOOD CELL COUNT 3.09 M/uL (4.30-5.90); WHITE BLOOD CELL COUNT,WBC 6.36 K/uL (4.0-11.0)
[2023-01-09 15:37] LABS: INR 0.97 (0.86-1.11)
[2023-01-09 15:38] LABS: PTT,PARTIAL THROMBOPLSTIN TIME < 20.0 SEC (23.9-30.7)
[2023-01-09 15:59] LABS: A/G RATIO 0.9 (0.9-1.6); ALBUMIN 3.1 g/dL (3.4-5.0); BILIRUBIN TOTAL 0.2 mg/dL (0.2-1.0); CALCIUM 8.5 mg/dL (8.5-10.1); EST CRCL DRUG DOSING (CG) 40.68 mL/min; POTASSIUM,K 3.9 mmol/L (3.5-5.1); PROTEIN TOTAL,TP 6.4 g/dL (6.4-8.2)
[2023-01-09 16:02] LABS: LACTIC ACID 1.4 mmol/L (0.4-2.0)
[2023-01-09 19:27] VITALS: BP 124/71; PULSE 85
== END 2023-01-09 17:40 ==
LOC: MW.ED 14:13
DX: K92.2 Gastrointestinal hemorrhage, unspecified (principal); J44.9 Chronic obstructive pulmonary disease, unspecified; Z79.899 Other long term (current) drug therapy; Z88.0 Allergy status to penicillin
CPT/HCPCS: 36415; 80053; 83605; 83735; 84484; 85025; 85610; 85730; 86850; 86900; 86901; 93005; 96374; 99285; C9113; J3490; 93010; 99284

== ENCOUNTER 2023-07-02 13:10 | Inpatient (IN) | payer MEDICARE, BC ==
[2023-07-02 13:58] LABS: BASOPHILS ABSOLUTE AUTO 0.04 K/uL (0.00-0.20); BASOPHILS PERCENT AUTO 0.7 % (0.0-1.0); EOSINOPHILS ABSOLUTE AUTO 0.61 K/uL (0.00-0.45); EOSINOPHILS PERCENT AUTO 10.7 % (0.0-6.0); HEMATOCRIT 41.3 % (37.0-47.0); HEMOGLOBIN 13.9 g/dL (12.0-16.0); IMMATURE GRAN ABSOLUTE AUTO 0.02 K/uL (0.00-0.05); IMMATURE GRAN PERCENT AUTO 0.4 % (0.0-0.4); LYMPHOCYTES ABSOLUTE AUTO 1.14 K/uL (1.00-4.80); MEAN CORPUSCULAR HGB CONC 33.7 g/dL (32.0-36.0); MONOCYTES ABSOLUTE AUTO 0.54 K/uL (0.00-0.80); MONOCYTES PERCENT AUTO 9.5 % (0.0-8.0); NEUTROPHILS ABSOLUTE AUTO 3.34 K/uL (1.80-7.70); NEUTROPHILS PERCENT AUTO 58.7 % (41.0-71.0); PLATELET COUNT,PLT 295 K/uL (150-400); RED BLOOD CELL COUNT 4.49 M/uL (4.10-5.30); WHITE BLOOD CELL COUNT,WBC 5.69 K/uL (3.9-11.3)
[2023-07-02] MEDS: Pantoprazole 80 MG in Sodium Chloride 0.9% 10 ML IVPUSH ONE (14:01)
[2023-07-02 14:12] LABS: PTT,PARTIAL THROMBOPLSTIN TIME 27.3 SEC (23.9-30.7)
[2023-07-02 14:21] LABS: A/G RATIO 0.8 (0.9-1.6); ALBUMIN 3.1 g/dL (3.4-5.0); BILIRUBIN TOTAL 0.4 mg/dL (0.2-1.0); CALCIUM 9.9 mg/dL (8.5-10.1); CREATININE 1.1 mg/dL (0.6-1.0); EST CRCL DRUG DOSING (CG) 34.87 mL/min; POTASSIUM,K 4.3 mmol/L (3.5-5.1); PROTEIN TOTAL,TP 7.2 g/dL (6.4-8.2)
[2023-07-02 14:22] LABS: LACTIC ACID 1.6 mmol/L (0.4-2.0)
[2023-07-02 15:20] LABS: CORONAVIRUS COVID-19 NAA NEGATIVE (NEGATIVE); INFLUENZA A NAA NEGATIVE (NEGATIVE); INFLUENZA B NAA NEGATIVE (NEGATIVE)
[2023-07-02] MEDS: cefTRIAXone 1 GM in Sodium Chloride 0.9% 50 ML IV ONE (15:36)
[2023-07-02] MEDS: Azithromycin 500 MG in Sodium Chloride 0.9% 250 ML IV ONE (15:36)
[2023-07-02] MEDS ORDERED: Albuterol/Ipratropium 3.0-0.5 MG/3 ML Neb Soln NEB PRN (16:48)
[2023-07-02] MEDS ORDERED: Acetaminophen 325 MG Tab PO PRN (16:48)
[2023-07-02] MEDS ORDERED: Polyethylene Glycol 3350 Powder 17 GM Packet PO PRN (16:48)
[2023-07-02] MEDS: busPIRone 15 MG Tab PO ONE (18:14)
[2023-07-02] MEDS: Clopidogrel 75 MG Tab PO SCH ×2 (19:01→21:32)
[2023-07-02] MEDS ORDERED: TIMOLOL EYEBOTH SCH (21:00)
[2023-07-02] MEDS ORDERED: DORZOLAMIDE HCL EYEBOTH SCH (21:00)
[2023-07-02] MEDS: atorvaSTATin 10 MG Tab PO SCH (21:32)
[2023-07-02] MEDS: LATANOPROST 0.005% EYEBOTH SCH (21:34)
[2023-07-03 05:33] LABS: BASOPHILS ABSOLUTE AUTO 0.04 K/uL (0.00-0.20); BASOPHILS PERCENT AUTO 0.7 % (0.0-1.0); EOSINOPHILS ABSOLUTE AUTO 0.74 K/uL (0.00-0.45); EOSINOPHILS PERCENT AUTO 12.5 % (0.0-6.0); HEMATOCRIT 36.1 % (37.0-47.0); HEMOGLOBIN 11.9 g/dL (12.0-16.0); IMMATURE GRAN ABSOLUTE AUTO 0.02 K/uL (0.00-0.05); IMMATURE GRAN PERCENT AUTO 0.3 % (0.0-0.4); LYMPHOCYTES ABSOLUTE AUTO 1.64 K/uL (1.00-4.80); LYMPHOCYTES PERCENT AUTO 27.7 % (24.0-44.0); MEAN CORPUSCULAR HEMOGLOBIN 30.1 pg (28.0-32.0); MEAN CORPUSCULAR VOLUME 91.4 fL (83.0-99.0); MEAN PLATELET VOLUME 9.2 fL (9.4-12.3); MONOCYTES ABSOLUTE AUTO 0.68 K/uL (0.00-0.80); MONOCYTES PERCENT AUTO 11.5 % (0.0-8.0); NEUTROPHILS ABSOLUTE AUTO 2.81 K/uL (1.80-7.70); NEUTROPHILS PERCENT AUTO 47.3 % (41.0-71.0); PLATELET COUNT,PLT 262 K/uL (150-400); RED BLOOD CELL COUNT 3.95 M/uL (4.10-5.30); WHITE BLOOD CELL COUNT,WBC 5.93 K/uL (3.9-11.3)
[2023-07-03 05:58] LABS: A/G RATIO 0.8 (0.9-1.6); ALBUMIN 2.5 g/dL (3.4-5.0); BILIRUBIN TOTAL 0.4 mg/dL (0.2-1.0); CALCIUM 9.3 mg/dL (8.5-10.1); CREATININE 1.2 mg/dL (0.6-1.0); EST CRCL DRUG DOSING (CG) 31.96 mL/min; PROTEIN TOTAL,TP 5.8 g/dL (6.4-8.2)
[2023-07-03] MEDS: Pantoprazole 40 MG in Sodium Chloride 0.9% 10 ML IVPUSH SCH (06:42)
[2023-07-03] MEDS: Allopurinol 100 MG Tab PO SCH (08:18)
[2023-07-03] MEDS ORDERED: VILANTEROL TR IH SCH (09:00)
[2023-07-03] MEDS ORDERED: UMECLIDINIUM BRM IH SCH (09:00)
[2023-07-03] MEDS: Dorzolamide 2% Ophth Soln 10 ML Bottle EYEBOTH SCH ×2 (09:20→09:30)
[2023-07-03] MEDS: busPIRone 5 MG Tab PO SCH (09:35)
[2023-07-03] MEDS: Ondansetron 4 MG Tab.DIS PO PRN (09:36)
[2023-07-03] MEDS: Aspirin 81 MG Tab.EC PO SCH (09:36)
[2023-07-03] MEDS: Dextrose 5% in Water 500 ML IV SCH (10:16)
[2023-07-03] MEDS: cefTRIAXone 1 GM in Sodium Chloride 0.9% 50 ML IV SCH (12:22)
[2023-07-03] MEDS: Azithromycin 250 MG Tab PO SCH (12:22)
[2023-07-03] MEDS: LATANOPROST 0.005% EYEBOTH SCH (20:51)
[2023-07-03] MEDS: ALBUTEROL HFA INH PRN (20:52)
[2023-07-03] MEDS: DORZOLAMIDE EYEBOTH SCH (21:05)
[2023-07-03] MEDS: TIMOLOL OPTHALMIC EYEBOTH SCH (21:05)
[2023-07-04 05:55] LABS: BASOPHILS ABSOLUTE AUTO 0.04 K/uL (0.00-0.20); BASOPHILS PERCENT AUTO 0.7 % (0.0-1.0); EOSINOPHILS PERCENT AUTO 12.3 % (0.0-6.0); HEMOGLOBIN 12.1 g/dL (12.0-16.0); IMMATURE GRAN ABSOLUTE AUTO 0.02 K/uL (0.00-0.05); IMMATURE GRAN PERCENT AUTO 0.4 % (0.0-0.4); LYMPHOCYTES ABSOLUTE AUTO 1.45 K/uL (1.00-4.80); LYMPHOCYTES PERCENT AUTO 25.4 % (24.0-44.0); MEAN CORPUSCULAR HEMOGLOBIN 30.1 pg (28.0-32.0); MEAN CORPUSCULAR HGB CONC 32.7 g/dL (32.0-36.0); MEAN PLATELET VOLUME 9.4 fL (9.4-12.3); MONOCYTES ABSOLUTE AUTO 0.68 K/uL (0.00-0.80); MONOCYTES PERCENT AUTO 11.9 % (0.0-8.0); NEUTROPHILS ABSOLUTE AUTO 2.82 K/uL (1.80-7.70); NEUTROPHILS PERCENT AUTO 49.3 % (41.0-71.0); PLATELET COUNT,PLT 256 K/uL (150-400); RED BLOOD CELL COUNT 4.02 M/uL (4.10-5.30); WHITE BLOOD CELL COUNT,WBC 5.71 K/uL (3.9-11.3)
[2023-07-04 06:16] LABS: A/G RATIO 0.8 (0.9-1.6); ALBUMIN 2.5 g/dL (3.4-5.0); BILIRUBIN TOTAL 0.4 mg/dL (0.2-1.0); CALCIUM 9.3 mg/dL (8.5-10.1); CARBON DIOXIDE,CO2 29.9 mmol/L (21.0-32.0); CREATININE 1.2 mg/dL (0.6-1.0); EST CRCL DRUG DOSING (CG) 31.96 mL/min; PROTEIN TOTAL,TP 5.8 g/dL (6.4-8.2)
[2023-07-04] MEDS: VILANTEROL TR INH SCH (08:56)
[2023-07-04] MEDS: UMECLIDINIUM BRM INH SCH (08:56)
[2023-07-04] MEDS: DORZOLAMIDE EYEBOTH SCH (08:56)
[2023-07-04] MEDS: TIMOLOL OPTHALMIC EYEBOTH SCH (08:56)
[2023-07-04] MEDS ORDERED: Dorzolamide 2% Ophth Soln 10 ML Bottle EYEBOTH SCH (09:00)
[2023-07-04 11:36] LABS: TSH ULTRASENSITIVE 3.43 uIU/mL (0.36-3.74)
[2023-07-05 07:46] LABS: BASOPHILS ABSOLUTE AUTO 0.05 K/uL (0.00-0.20); BASOPHILS PERCENT AUTO 0.8 % (0.0-1.0); EOSINOPHILS PERCENT AUTO 11.4 % (0.0-6.0); HEMATOCRIT 39.6 % (37.0-47.0); HEMOGLOBIN 13.1 g/dL (12.0-16.0); IMMATURE GRAN ABSOLUTE AUTO 0.03 K/uL (0.00-0.05); IMMATURE GRAN PERCENT AUTO 0.5 % (0.0-0.4); LYMPHOCYTES ABSOLUTE AUTO 1.41 K/uL (1.00-4.80); LYMPHOCYTES PERCENT AUTO 22.9 % (24.0-44.0); MEAN CORPUSCULAR HEMOGLOBIN 30.9 pg (28.0-32.0); MEAN CORPUSCULAR HGB CONC 33.1 g/dL (32.0-36.0); MEAN CORPUSCULAR VOLUME 93.4 fL (83.0-99.0); MEAN PLATELET VOLUME 9.4 fL (9.4-12.3); MONOCYTES ABSOLUTE AUTO 0.53 K/uL (0.00-0.80); MONOCYTES PERCENT AUTO 8.6 % (0.0-8.0); NEUTROPHILS ABSOLUTE AUTO 3.43 K/uL (1.80-7.70); NEUTROPHILS PERCENT AUTO 55.8 % (41.0-71.0); PLATELET COUNT,PLT 278 K/uL (150-400); RED BLOOD CELL COUNT 4.24 M/uL (4.10-5.30); WHITE BLOOD CELL COUNT,WBC 6.15 K/uL (3.9-11.3)
[2023-07-05 08:19] LABS: A/G RATIO 0.8 (0.9-1.6); ALBUMIN 2.8 g/dL (3.4-5.0); BILIRUBIN TOTAL 0.4 mg/dL (0.2-1.0); CALCIUM 9.4 mg/dL (8.5-10.1); CREATININE 1.2 mg/dL (0.6-1.0); EST CRCL DRUG DOSING (CG) 31.96 mL/min; PROTEIN TOTAL,TP 6.5 g/dL (6.4-8.2)
[2023-07-05] MEDS: Cefdinir 300 MG Cap PO ONE (11:53)
[2023-07-05 12:09] VITALS: BP 120/66; PULSE 87
[2023-07-06 09:06] LABS: BORDETELLA PARAPERT IS1001 Not Detected (Not Detected)
== END 2023-07-05 15:30 | disposition home or self-care (01) | DRG 193 ==
LOC: MW.ED 13:10 → MW.MS 16:03 → OBSVTOIN 16:48
PROVIDERS: ADMIT Internal Medicine; ATTEND Nurse Practitioner Family
DX: K92.2 Gastrointestinal hemorrhage, unspecified (principal); J12.9 Viral pneumonia, unspecified; K29.01 Acute gastritis with bleeding; J44.0 Chronic obstructive pulmonary disease with (acute) lower respiratory infection; J18.9 Pneumonia, unspecified organism; I25.10 Atherosclerotic heart disease of native coronary artery without angina pectoris; F41.9 Anxiety disorder, unspecified; J44.9 Chronic obstructive pulmonary disease, unspecified; M10.9 Gout, unspecified; Z66 Do not resuscitate; J43.9 Emphysema, unspecified; E78.2 Mixed hyperlipidemia; R91.8 Other nonspecific abnormal finding of lung field; Z95.5 Presence of coronary angioplasty implant and graft; Z95.2 Presence of prosthetic heart valve; Z79.02 Long term (current) use of antithrombotics/antiplatelets; Z88.0 Allergy status to penicillin; Z79.899 Other long term (current) drug therapy; Z86.16 Personal history of COVID-19; Z98.49 Cataract extraction status, unspecified eye; Z98.51 Tubal ligation status; Z99.81 Dependence on supplemental oxygen
CPT/HCPCS: 0240U; 36415; 71045; 71250; 74150; 80053; 83605; 83690; 83735; 84443; 84484; 85025; 85610; 85730; 86850; 86900; 86901; 87486; 87581; 87633; 93005; 96365; 96367; 96375; 97161; 99285; 93010; 99222; 99231; 99232; 99238; 99284; A9270-GY; C9113; J0456; J0696; J3490; J7050; J7060

== ENCOUNTER 2025-03-20 12:31 | Emergency (ER) | payer MEDICARE, BC ==
[2025-03-20] MEDS: Dexamethasone Sod Phos Preservative Free 10 MG/ML Vial IVPUSH ONE (13:23)
[2025-03-20 13:31] LABS: BASOPHILS ABSOLUTE AUTO 0.05 K/uL (0.00-0.20); BASOPHILS PERCENT AUTO 0.5 % (0.0-1.0); EOSINOPHILS ABSOLUTE AUTO 0.36 K/uL (0.00-0.45); EOSINOPHILS PERCENT AUTO 3.5 % (0.0-6.0); IMMATURE GRAN ABSOLUTE AUTO 0.05 K/uL (0.00-0.05); IMMATURE GRAN PERCENT AUTO 0.5 % (0.0-0.4); LYMPHOCYTES ABSOLUTE AUTO 1.64 K/uL (1.00-4.80); LYMPHOCYTES PERCENT AUTO 15.9 % (24.0-44.0); MEAN PLATELET VOLUME 9.7 fL (9.4-12.3); MONOCYTES ABSOLUTE AUTO 0.63 K/uL (0.00-0.80); MONOCYTES PERCENT AUTO 6.1 % (0.0-8.0); NEUTROPHILS ABSOLUTE AUTO 7.59 K/uL (1.80-7.70); NEUTROPHILS PERCENT AUTO 73.5 % (41.0-71.0); NRBC ABSOLUTE 0.00 K/uL (0.00-0.02); NRBC PERCENT 0.0 /100WBC (0.0-0.2); PLATELET COUNT,PLT 228 K/uL (150-400); RED BLOOD CELL COUNT 4.63 M/uL (4.10-5.30); WHITE BLOOD CELL COUNT,WBC 10.32 K/uL (3.9-11.3)
[2025-03-20 13:55] LABS: A/G RATIO 0.9 (0.9-1.6); ALANINE AMINOTRANSFERASE,ALT 17.0 IU/L (14-63); ASPARTATE AMNIOTRANSFERASE,AST 37.0 IU/L (15-37); BILIRUBIN TOTAL 0.3 mg/dL (0.2-1.0); BLOOD UREA NITROGEN,BUN 22.0 mg/dL (7.0-18.0); CARBON DIOXIDE,CO2 28.0 mmol/L (21.0-32.0); CHLORIDE,CL 105.0 mmol/L (98-107); CREATININE 1.3 mg/dL (0.6-1.0); EST CRCL DRUG DOSING (CG) 29.03 mL/min; GLUCOSE RANDOM 87.0 mg/dL (74-106); POTASSIUM,K 4.7 mmol/L (3.5-5.1); PROTEIN TOTAL,TP 7.5 g/dL (6.4-8.2); SODIUM,NA 143.0 mmol/L (136-145)
[2025-03-20 13:57] LABS: ESTIMATED GFR 42.0 mL/min (>60)
[2025-03-20 13:58] LABS: LACTIC ACID 1.2 mmol/L (0.4-2.0)
[2025-03-20 14:17] LABS: CORONAVIRUS COVID-19 NAA NEGATIVE (NEGATIVE); INFLUENZA A NAA NEGATIVE (NEGATIVE); INFLUENZA B NAA NEGATIVE (NEGATIVE); RESPIRATORY SYNCYTIAL VIR NAA NEGATIVE (NEGATIVE)
[2025-03-20 16:55] VITALS: BP 157/78; PULSE 78
== END 2025-03-20 16:55 | disposition home or self-care (01) ==
LOC: MW.ED 12:31
DX: J06.9 Acute upper respiratory infection, unspecified (principal); J44.9 Chronic obstructive pulmonary disease, unspecified; Z75.3 Unavailability and inaccessibility of health-care facilities; Z88.0 Allergy status to penicillin; Z88.8 Allergy status to other drugs, medicaments and biological substances; Z79.82 Long term (current) use of aspirin; Z79.899 Other long term (current) drug therapy
CPT/HCPCS: 36415; 71046; 80053; 83605; 83690; 83735; 85025; 87040; 87077; 87154; 87186; 87637; 87651; 96361; 96374; 99283; J1100; J7030; 99284